=== PATIENT | female | born 1995 | race Caucasian/White ===

== ENCOUNTER → 2025-03-18 | Outpatient (CLI) | payer OTHER, SELFPAY ==
[2025-03-20 20:08] LABS: Chlamydia By Nucleic Acid AMP Negative (Negative); Gonococcus By Nucleic Acid AMP Negative (Negative)
== END | disposition home or self-care (01) ==
LOC: LABSPEC 12:18
PROVIDERS: PCP Family Medicine; Referring Provider Nurse Practitioner Family; Visit Provider Nurse Practitioner Family
DX: Z11.3 Encounter for screening for infections with a predominantly sexual mode of transmission (principal)
CPT/HCPCS: 87491; 87591

== ENCOUNTER → 2025-03-24 | Outpatient (CLI) | payer OTHER, SELFPAY ==
[2025-03-24 16:36] LABS: Hematocrit 40.4 % (37-47); Hemoglobin 12.8 g/dL (12.0-15.0); Immature Granulocytes Count 0.020 X10^3/uL (0.0-0.0); Mean Corp Hgb Conc 31.7 g/dL (32-36); Mean Corpuscular Volume 78.8 fL (81-99); Mean Platelet Vol. 11.1 fl (6.2-12.0); NRBC Flagged by Analyzer 0 % (0-5); Platelet Count 280 K/mm3 (150-450); RBC Distribution Width CV 14.1 % (11.6-14.6); RBC Distribution Width SD 40.5 fl (35.1-43.9); Red Blood Count 5.13 M/mm3 (4.2-5.4); White Blood Count 6.6 K/mm3 (4.4-11.0)
[2025-03-24 17:25] LABS: AST(SGOT) 17 U/L (<=31); Alanine Aminotransfer ALT/SGPT 15 U/L (<=34); Albumin, Serum 4.6 g/dL (3.5-5.0); Alkaline Phosphatase 74 U/L (35-104); Anion Gap 12 (5-15); BUN 15 mg/dL (4-19); BUN/Creat Ratio 19.7 RATIO (10-20); Calcium,Total 9.8 mg/dL (7.6-11.0); Carbon Dioxide 24.7 mmol/L (21.0-32.0); Chloride 105 mmol/L (98-108); Globulin 2.8 g/dL (2.2-4.2); Glucose 86 mg/dL (70-99); Potassium 3.8 mmol/L (3.3-5.1)
== END | disposition home or self-care (01) ==
PROVIDERS: PCP Family Medicine; Visit Provider Nurse Practitioner Family
DX: Z31.69 Encounter for other general counseling and advice on procreation (principal); N93.0 Postcoital and contact bleeding
CPT/HCPCS: 36415; 80053; 82627; 82670; 84439; 84443; 85025; 82626

== ENCOUNTER → 2025-03-27 | Outpatient (CLI) | payer OTHER, SELFPAY ==
--- NOTE | 2025-03-27 16:30 | US_ITS ---
PROCEDURE: PELVIC W/ TRANSVAGINAL 03/27/2025 REASON FOR EXAM: PCB/INFERTILITY TECHNIQUE: Procedure Code: [id number] Modality: US Procedure: PELVIC W/ TRANSVAGINAL COMPARISON: None. FINDINGS: ENDOMETRIUM: Homogeneous. Normal thickness of 3.0 mm. No abnormal endometrial color Doppler flow. UTERUS: Normal size and contour measuring 7.2 x 4.7 x 3.3 cm. No fibroid detected. CERVIX: Normal size and contour. Small anechoic cervical nabothian cysts. RIGHT OVARY: Normal size and appearance measuring 2.8 x 1.6 x 3.2 cm (volume 7.5 mL). Normal follicles. Normal blood flow. No adnexal mass. LEFT OVARY: Normal size and appearance measuring 2.3 x 2.2 x 2.0 cm (volume 5.3 mL). Normal follicles. Normal blood flow. No adnexal mass. FREE FLUID: No free fluid. URINARY BLADDER: Normal morphology with a volume of 268.2 mL. US/Pelvic w/ Transvaginal IMPRESSION: UNREMARKABLE PELVIC ULTRASOUND. Reading Location: [id number]
--- OUTSIDE RECORDS SUMMARY | 2025-03-27 16:49 | XMS RPT_ITS | CCD ---
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 AMAURY IBARRA Attending Unavailable STACEY, Dr. REBOLLEDO Referring Unavailable Aure Gordon Primary Care Unavaila ble Gordon, Aure Dodd Primary Care Unavaila ble STACEY, Dr. REBOLLEDO Attending Unavailable Gordon, Aure Dodd Referring Unavaila ble Gordon, Aure Dodd Primary Care Unavaila ble GordonAure castro Attending Unavaila ble GordonAure castro Primary Care Unavaila ble GordonAure castro Attending Unavaila ble GordonAure Referring Unavaila ble Gordon, Aure Dodd Primary Care Unavaila ble Wood, Ms. Kristine Yates Attending Unav ailable Wood, Ms. Kristine Yates Referring Unav ailable GordonAure castro Primary Care Unavaila ble GordonAure castro Attending Unavaila ble GordonAure castro Referring Unavaila ble Gordon Aure BLAKE Primary Care Provider IRMA STAFFORD Attending Ingevai lable AURE GORDON Primary Care Unavaila ble Medications Current Medications Medication Drug Class(es) Dates Sig (Normalized) Sig (Original) brompheniramine maleate 0.4 mg/ml / dextromethorphan hydrobromide 2 mg/ml / pseudoephedrine hydrochloride 6 mg/ml oral solution (2 sources) alpha-Adrenergic Agonist, Uncompetitive B-lxmftf-X-aspartat e Receptor Antagonist, Sigma-1 Agonist Start: 03-17-2019 take 5 mL by mouth four times daily for cough Bromfed DM oral syrup ; 5 milliliter(s) orally 4 times a day, As Needed -for cough Quantity: 120 Refills: 0 Ordered: 17-Mar-2019 Daniel Cha Start: 17-Mar-2019 Generic Substitution Allowed Comments: May cause drowsiness. Alcohol may intensify this effect. Use care when operating dangerous machinery.Obtain medical advice before taking any non-prescription drugs as some may affect the action of this medication. Comment on above: May cause drowsiness . Alcohol may intensify this effect. Use care when operating dangerous machinery.Obtain medical advice before taking any non-prescription drugs as some may affect the action of this medication. Ethinyl Estradiol / norgestimate (2 sources) Progestin, Estrogen Ortho Tri-Cy clen Quantity: 0 Refills: 0 Ordered: 17-Mar-2019 Priscila Moya Generic Substitution Allowed Completed/Discontinued Medications Medication Drug Class(es) Dates Sig (Normalized) Sig (Original) amoxicillin 875 mg / clavulanate 125 mg oral tablet (2 sources) Penicillin-class Antibacterial Start: 03-17-2019 End: 03-26-2019 take 1 tablet by mouth twice daily at mealtime amoxicillin-clavula mushtaq 875 mg-125 mg oral tablet ; 875 milligram(s) orally 2 times a day Quantity: 20 Refills: 0 Ordered: 17-Mar-2019 Daniel Cha Start: 17-Mar-2019 End: 26-Mar-2019 Generic Substitution Allowed Comments: Finish all this medication unless otherwise directed by prescriber.Take with food or milk. Comment on above: Finish all this medi cation unless otherwise directed by prescriber.Take with food or milk. doxylamine succinate 25 mg oral tablet (2 sources) Start: 01-20-2022 take 1 tablet by mouth at bedtime Unisom SleepTabs 25 MG Oral Tablet TAKE 1 TABLET AT BEDTIME. Quantity: 30 Refills: 3 Ordered: 20-Jan-2022 Kristine Acosta Start : 20-Jan-2022 Active escitalopram 10 mg oral tablet (1 source) Serotonin Reuptake Inhibitor Start: 12-29-2021 take 1 tablet by mouth once daily Escitalopram Oxalate 10 MG Oral Tablet TAKE 1 TABLET DAILY. Quantity: 30 Refills: 11 Ordered: 29-Dec-2021 Aure Gordon MD Start : 29-Dec-2021 Active 1-20 MG-MCG(24) Oral Tablet (1 source) Estrogen Start: 04-25-2018 take 1 tablet by mouth once daily 1-20 MG-MCG(24) Oral Tablet TAKE 1 TABLET DAILY. Quantity: 1 Refills: 0 Amaury Ibarra DO Start : 25-Apr-2018 Active 28 Tablet Pack No Reported Medications (3 sources) No Reported Medications Quantity: 0 Refills: 0 Ordered: 07-Jun-2020 DO Active ondansetron 8 mg disintegrating oral tablet (3 sources) Serotonin-3 Receptor Antagonist Start: 01-03-2022 take 1 tablet by mouth every six hours as needed for nausea Ondansetron 8 MG Oral Tablet Disintegrating 1 every 6 hours as needed for nausea Quantity: 12 Refills: 2 Ordered: 03-Jan-2022 Aure Gordon MD Start : 03-Jan-2022 Active predniSONE 10 mg oral tablet (2 sources) Start: 03-17-2019 End: 03-19-2019 take 1 tablet by mouth twice daily at mealtime predniSONE 10 mg oral tablet ; 1 tab(s) orally 2 times a day Quantity: 6 Refills: 0 Ordered: 17-Mar-2019 Daniel Cha Start: 17-Mar-2019 End: 19-Mar-2019 Generic Substitution Allowed Comments: It is very important that you take or use this exactly as directed. Do not skip doses or discontinue unless directed by your doctor.Obtain medical advice before taking any non-prescription drugs as some may affect the action of this medication.Take with food or milk. Comment on above: It is very important that you take or use this exactly as directed. Do not skip doses or discontinue unless directed by your doctor.Obtain medical advice before taking any non-prescription drugs as some may affect the action of this medication.Take with food or milk. sertraline 50 mg oral tablet (2 sources) Serotonin Reuptake Inhibitor Start: 01-03-2022 End: 01-20-2022 take 0.5 tablet by mouth once daily, then take 1 tablet by mouth once daily Sertraline HCl - 50 MG Oral Tablet 1/2 a day for a week, then 1 a day Quantity: 30 Refills: 11 Ordered: 03-Jan-2022 Aure Gordon MD Start : 03-Jan-2022 End : 20-Jan-2022 Complete Problems Active Problems Problem Classification Problem Date Documented Date Episodic/Chronic Anxiety disorders (4 sources) Mixed anxiety and depressive disorder; Translations: [Anxiety state, unspecified] Chronic Contraceptive and procreative management (20 sources) Patient encounter status; Translations: [Unspecified contraceptive management] Episodic Immunizations and screening for infectious disease (2 sources) Contact with or exposure to other viral diseases; Translations: [Contact with and (suspected) exposure to other viral communicable diseases] 12-29-2020 Episodic Nausea and vomiting (3 sources) Nausea; Translations: [Nausea alone] Episodic Open wounds of extremities (1 source) Avulsion of skin; Translations: [Open wound of finger(s), without mention of complication] 11-03-2021 Episodic Other female genital disorders (2 sources) Abnormal uterine bleeding; Translations: [Abnormal uterine and vaginal bleeding, unspecified] 07-13-2024 Chronic Other female genital disorders (2 sources) Abnormal uterine and vaginal bleeding, unspecified; Translations: [Abnormal uterine and vaginal bleeding, unspecified] Onset: 07-11-2024 Chronic Other female genital disorders (1 source) Disorder of uterine cervix; Translations: [Other specified noninflammatory disorders of cervix uteri] 07-13-2024 Episodic Other screening for suspected conditions (not mental disorders or infectious disease) (9 sources) Cancer cervix screening status; Translations: [Screening for malignant neoplasms of cervix] Onset: 06-13-2021 Episodic Residual codes; unclassified (2 sources) Insomnia; Translations: [Insomnia, unspecified] Episodic Screening and history of mental health and substance abuse codes (7 sources) H/O: depression; Translations: [Personal history of other mental disorders] Episodic Unclassified (1 source) Patient encounter procedure 06-07-2020 Comment on above: YEARLY Unclassified (2 sources) THUMB LACERATION 11-03-2021 Comment on above: THUMB LACERATION Unclassified (1 source) Avulsion of skin of right thumb, initial encounter 11-03-2021 Viral infection (2 sources) Disease caused by 2019-nCoV 12-29-2020 Comment on above: COVID SX Past or Other Problems Problem Classification Problem Date Documented Da te Episodic/Chronic Unclassified (1 source) Patient encounter status; Translations: [Contraceptive management] Results Test Name Value Interpretation Reference Range Facility BV/VAGINITIS PANEL DNA PROBE on 07-12-2024 LORY: Not detected Normal NOT DETECTED [facility] Comment on above: Performed By: #### [id number] #### [facility] of [address], [address] [place] [address] Chemistry Lab Instructor: Andrea Armando MD GARDNERELLA: Not detected Normal NOT DETECTED [facility] Comment on above: Performed By: #### [id number] #### [facility] [address], [address] [place] [address] Chemistry Lab Instructor: Andrea Armando MD TRICHOMONAS: Not detected Normal NOT DETECTED [facility] Comment on above: Performed By: #### [id number] #### [facility] [address], [address] [place] [address] Chemistry Lab Instructor: Andrea Armando MD Vaginitis DNA Probeson 07-12 Lory sp rRNA Probe Ql (Vag fld) Not detected NOT DETECTED [facility] G. vaginalis rRNA Probe Ql (Genital specimen) Not detected NOT DETECTED [facility] T. vaginalis rRNA Probe Ql (Genital specimen) Not detected NOT DETECTED [facility] THINPREP PAP SMEARon 025 THINPREP PAP SMEAR Gynecologic Cytology Report Case: [id number] Authorizing Provider: Irma Stafford, Collected: 07/11/2024 11:10 AM Ordering Location: [facility] Received: 07/14/2024 08:27 AM Obstetrics and Gynecology First Screen: Rhiannon ELI(ASCP)Aurelio Specimen: THINPREP PAP SMEAR, Cervix / Endocervix Satisfactory for evaluation; endocervical/transformatio n zone component present Negative for intraepithelial lesion or malignancy at 1033 EDT The Pap smear is a screening test for the detection of cervical cancer and its precursor lesions. False positive and false negative results can occur. The test should be performed at regular intervals, and positive results should be confirmed before definitive therapy. Additional testing methods may be helpful in detecting abnormalities or in clinical management. The specimen has been analyzed by the ThinPrep imaging system, an automated imaging and review system which assists the laboratory in evaluating cells on ThinPrep tests. Following automated imaging selected ward from every slide are reviewed by a stucco mason. Specimen processing and Primary Screening performed at: [facility] - [address] [place] [id number] 06/21/2024 Normal [facility] Comment on above: Performed By: #### [id number] #### [facility] [address] [place] [id number] Salvador Mtz M.D. [id number] VAGINITIS DNA PROBESon 07-11 VAGINITIS DNA PROBES EXT ONEL - TRICHOMONAS: NOT DETECTED EXT ONEL - GARDNERELLA: NOT DETECTED EXT ONEL - LORY: NOT DETECTED Normal NOT DETECTED [facility] Comment on above: Order Comment: [id number] Office Visit (Primary Care T xt/Forms)on 01-30-2022 Follow-up visit Diagnoses/Problems Assessed Anxiety and depression (300.00,311) (F41.9,F32.A) Patient Discussion/Summary Follow-up as needed Provider Impressions Provider Impressions Free Text Note Form: Patient is here today for recheck on anxiety, had trouble tolerating Lexapro and Zoloft, it made her anxiety worse, since then has changed jobs at work, is getting ready to see a counselor and is not drinking alcohol anymore. Patient is feeling better, emotionally seems to be stable, plan to follow-up as needed. Chief Complaint 1 MO F/U History of Present Illness SSRI made feel more anxious and nervous, nauseated, feeling better off of medicines emotionally doing OK now nausea and insomnia better changed jobs in the past month no ETOH use going to try counseling Review of Systems Constitutional: not feeling tired, no fever and no chills. ENT: no nasal discharge and no nasal congestion. Respiratory: cough, but no dyspnea with exertion and no dyspnea at rest. Gastrointestinal: no diarrhea, no nausea and no vomiting. Psychiatric: no mood changes, no sleep disturbances, no substance use, no feelings of anxiety, no panic attacks, no feelings of depression and no suicidal thoughts. Active Problems Problems Anxiety and depression (300.00,311) (F41.9,F32.A) Contraceptive management (V25.9) (Z30.9) Insomnia (780.52) (G47.00) Nausea in adult (787.02) (R11.0) Screening for breast cancer (V76.10) (Z12.39) Screening for cervical cancer (V76.2) (Z12.4) Screening for diabetes mellitus (V77.1) (Z13.1) Screening for lipid disorders (V77.91) (Z13.220) Wellness examination (V70.0) (Z00.00) Women's annual routine gynecological examination (V72.31) (Z01.419) Past Medical History Problems History of depression (V11.8) (Z86.59) History of Menarche (V21.8) History of Pap test, as part of routine gynecological examination (V76.2) (Z01.419) Surgical History Problems History of [place] tooth extraction Family History Mother Family history of diabetes mellitus (V18.0) (Z83.3) Family history of migraine headaches (V17.2) (Z82.0) Family history of HTN (hypertension), benign Father Family history of hypertension (V17.49) (Z82.49) Family history of Psychological disorder Social History Problems Consumes alcohol occasionally (V49.89) (Z78.9) Does not use illicit drugs (V49.89) (Z78.9) Non-smoker (V49.89) (Z78.9) Sexually active Current Meds Medication NameInstruction Ondansetron 8 MG Oral Tablet Disintegrating1 every 6 hours as needed for nausea Unisom SleepTabs 25 MG Oral TabletTAKE 1 TABLET AT BEDTIME. Allergies Medication No Known Drug Allergies Vitals Vital Signs Recorded: 30Jan2022 03:51PM Heart Rate: 88 Systolic: 110 Diastolic: 70 Height: 5 ft 8 in Weight: 172 lb 2 oz BMI Calculated: 26.17 kg/m2 BSA Calculated: 1.92 O2 Saturation: 99 Physical Exam Constitutional - Well developed, well nourished, well hydrated and no acute distress. Vital signs reviewed. Pulmonary - No grunting, flaring or retractions. No rales or wheezing. Good air exchange. Cardiovascular - Regular rate and rhythm. No significant murmur. Abdomen - Soft, non-tender, no masses. No hepatomegaly or splenomegaly. normal active bowel sounds. Psychiatric - Judgment and insight: Intact. Mood and affect: Normal. Alert and oriented x 3. Recent and remote memory: Normal. Signatures Electronically signed by : Aure Gordon MD; Jan 30 2022 4:09PM EST (Author) Normal [facility] Office Visit (Primary Care T xt/Forms)on 01-20-2022 Follow-up visit Diagnoses/Problems Assessed Anxiety and depression (300.00,311) (F41.9,F32.A) Nausea in adult (787.02) (R11.0) Insomnia (780.52) (G47.00) Orders Insomnia Start: Unisom SleepTabs 25 MG Oral Tablet; TAKE 1 TABLET AT BEDTIME Provider Impressions Provider Impressions Free Text Note Form: Work excuse for today Discontinue Zoloft Continue Zofran 8 mg every 6 hours as needed for nausea Unisom 25 mg 30 minutes prior to sleep as needed Contact information given for [facility] [place] Keep appointment with Dr. Gordon next month Chief Complaint STARTED NEW MED , DRY HEAVING, NAUSEA, INSOMNIA, INCREASED ANXIETY History of Present Illness Monica comes to office for concerns of anxiety AND depression. Trialed Lexapro for 4-5D AND developed nausea (recently chged jobs) with worsened worsened her anxiety AND caused intrusive thoughts AND poor appetite. Zofran helped w/ nausea AND helped increase her appetite. Symptoms abated after discontinuing Lexapro over the course of a couple days. She allowed to washout of the Lexapro and once she was symptom-free she started Zoloft. After taking Zoloft for 4D she developed anxiety, became more edgy, had trouble relaxing, nausea returned and the re-development of intrusive thoughts. Awoke this AM w/ dry heaves, poor appetite. [place] feverish yest. When cked temp. 98.9. LMP: 01/13/22. In home preg test today: normal. Sleep: fair. Awakens w/ anxiety AND racing heart. Review of Systems Constitutional: feeling tired, but no fever and no chills. ENT: sore throat. Gastrointestinal: nausea and vomiting, but no abdominal pain, no constipation, no diarrhea and no heartburn. Psychiatric: mood changes, sleep disturbances, feelings of anxiety and feelings of depression, but no suicidal thoughts. Endocrine: appetite change. Active Problems Problems Anxiety and depression (300.00,311) (F41.9,F32.A) Contraceptive management (V25.9) (Z30.9) Nausea in adult (787.02) (R11.0) Screening for breast cancer (V76.10) (Z12.39) Screening for cervical cancer (V76.2) (Z12.4) Screening for diabetes mellitus (V77.1) (Z13.1) Screening for lipid disorders (V77.91) (Z13.220) Wellness examination (V70.0) (Z00.00) Women's annual routine gynecological examination (V72.31) (Z01.419) Past Medical History Problems History of depression (V11.8) (Z86.59) History of Menarche (V21.8) History of Pap test, as part of routine gynecological examination (V76.2) (Z01.419) Surgical History Problems History of [place] tooth extraction Family History Mother Family history of diabetes mellitus (V18.0) (Z83.3) Family history of migraine headaches (V17.2) (Z82.0) Family history of HTN (hypertension), benign Father Family history of hypertension (V17.49) (Z82.49) Family history of Psychological disorder Social History Problems Consumes alcohol occasionally (V49.89) (Z78.9) Does not use illicit drugs (V49.89) (Z78.9) Non-smoker (V49.89) (Z78.9) Sexually active Current Meds Medication NameInstruction Ondansetron 8 MG Oral Tablet Disintegrating1 every 6 hours as needed for nausea Allergies Medication No Known Drug Allergies Vitals Vital Signs Recorded: [id number] 01:27PM Heart Rate: 91 Systolic: 122 Diastolic: 82 Height: 5 ft 8 in Weight: 177 lb 9 oz BMI Calculated: 27 kg/m2 BSA Calculated: 1.94 Tobacco Use: b) No Falls Screening (Age 18+): a) No falls within the last year O2 Saturation: 98 Physical Exam Constitutional - Well developed, well nourished, well hydrated and no acute distress. Vital signs reviewed. Ears, Nose, Mouth, and Throat - No nasal discharge. External ears without deformities. TM's normal color, normal landmarks, no fluid, non-retracted. External auditory canals without swelling, redness or tenderness. Pharyngeal mucosa normal. No erythema, exudate, or lesions. Mucous membranes moist. Pulmonary - No grunting, flaring or retractions. No rales or wheezing. Good air exchange. Cardiovascular - Regular rate and rhythm. No significant murmur. Signatures Electronically signed by : CECILY Treviño; Jan 20 2022 1:57PM EST (Author) Normal [facility] Tobacco Screening.on 022 Fall risk assessment a) No falls within the last year [facility] Work Phone: Tobacco use status [facility] b) No [employer] Work Phone: Office Visit (Primary Care T xt/Forms)on 12-29-2021 Follow-up visit Diagnoses/Problems Assessed Anxiety and depression (300.00,311) (F41.9,F32.A) Orders Anxiety and depression Start: Escitalopram Oxalate 10 MG Oral Tablet; TAKE 1 TABLET DAILY Patient Discussion/Summary Follow-up in 1 month for anxiety Provider Impressions Provider Impressions Free Text Note Form: Patient is seen today for evaluation of emotional disorder. Patient is having trouble with anxiety since start of COVID-19 in 2019, and has been having increasing emotional lability feeling blue blood sad hopeless helpless fatigue, had been using at least 3-4 alcoholic beverages a day to try to cope with feelings, having hard time sleeping at night, started a new job in the past month, is feeling more anxious and depressed, has had some suicidal ideations without any plans or thoughts of carrying this out. Had been treated for depression in the past when she was in high school no history of hospitalization no family history of suicide or alcoholism. We will try adding Lexapro 10 mg once a day to the patient's regimen, she had been on citalopram in the past, advised about medication taken about 4 to 6 weeks to help, follow-up in 4 weeks to reassess, call the office if any symptoms or issues. Chief Complaint DEP /ANX History of Present Illness Not feeling well for the past 2 years, getting worse, started a new job (making worse) feeling stressed and anxious, hard to sleep well at night, no panic, tearful at times, + irritable/edgy, some trouble with focus, + hopeless and helpless, some fatigue, no motivation to do things has been treated for emotions in the past (in high school) has had some SI, no plans thought about self mutilation + ETOH (3 drinks a day/seltzer or wine), has tried to stop this summer, has cut back to 1 a week no FHx of ETOH abuse never been hospitalized in the past for mood Review of Systems Constitutional: feeling tired, but no fever and no chills. Psychiatric: mood changes, sleep disturbances, substance use, feelings of anxiety, feelings of depression and suicidal thoughts, but no panic attacks. Active Problems Problems Contraceptive management (V25.9) (Z30.9) Screening for breast cancer (V76.10) (Z12.39) Screening for cervical cancer (V76.2) (Z12.4) Screening for diabetes mellitus (V77.1) (Z13.1) Screening for lipid disorders (V77.91) (Z13.220) Wellness examination (V70.0) (Z00.00) Women's annual routine gynecological examination (V72.31) (Z01.419) Past Medical History Problems History of depression (V11.8) (Z86.59) History of Menarche (V21.8) History of Pap test, as part of routine gynecological examination (V76.2) (Z01.419) Surgical History Problems History of [place] tooth extraction Family History Mother Family history of diabetes mellitus (V18.0) (Z83.3) Family history of migraine headaches (V17.2) (Z82.0) Family history of HTN (hypertension), benign Father Family history of hypertension (V17.49) (Z82.49) Family history of Psychological disorder Social History Problems Consumes alcohol occasionally (V49.89) (Z78.9) Does not use illicit drugs (V49.89) (Z78.9) Non-smoker (V49.89) (Z78.9) Sexually active Current Meds Medication NameInstruction No Reported Medications Allergies Medication No Known Drug Allergies Vitals Vital Signs Recorded: [id number] 04:23PM Heart Rate: 97 Systolic: 110 Diastolic: 80 Height: 5 ft 8 in Weight: 177 lb 9 oz BMI Calculated: 27 kg/m2 BSA Calculated: 1.94 O2 Saturation: 99 Physical Exam Constitutional - Well developed, well nourished, well hydrated and no acute distress. Vital signs reviewed. Psychiatric - Judgment and insight: Intact. Mood and affect: Normal. Alert and oriented x 3. Recent and remote memory: Normal. Signatures Electronically signed by : Aure Gordon MD; Dec 29 2021 5:13PM EST (Author) Normal [facility] COMPREHENSIVE PANELon 2021 Albumin [Mass/Vol] 4.4 g/dL Normal 3.4 - 5.0 [facility] Comment on above: Performed By: #### CMP #### [address] [address] ALP [Catalytic activity/Vol] 59 U/L Normal 33 - 110 [facility] Comment on above: Performed By: #### CMP #### [address] [address] ALT [Catalytic activity/Vol] 10 U/L Normal 7 - 45 [facility] Comment on above: Result Comment: Patients treated with Mulligan lfasalazine may generate falsely decreased results for ALT. Performed By: #### C MP #### [address] [address] Anion gap [Moles/Vol] 11 mmol/L Normal 10 - 20 [facility] Comment on above: Performed By: #### CMP #### [address] [address] AST [Catalytic activity/Vol] 15 U/L Normal 9 - 39 [facility] Comment on above: Performed By: #### CMP #### [address] [address] Bilirubin [Mass/Vol] 0.4 mg/dL Normal 0.0 - 1.2 [facility] Comment on above: Performed By: #### CMP #### [address] [address] Calcium [Mass/Vol] 9.4 mg/dL Normal 8.6 - 10.3 [facility] Comment on above: Performed By: #### CMP #### [address] [address] Chloride [Moles/Vol] 108 mmol/L High 98 - 107 [facility] Comment on above: Performed By: #### CMP #### [address] [address] Creatinine [Mass/Vol] 0.82 mg/dL Normal 0.50 - 1.05 [facility] Comment on above: Performed By: #### CMP #### [address] [address] eGFR FEMALE >90 Normal >90 [facility] Comment on above: Result Comment: CALCULATIONS OF ESTIMATE D GFR ARE PERFORMED USING THE 2020 CKD-EPI STUDY REFIT EQUATION WITHOUT THE RACE VARIABLE FOR THE IDMS-TRACEABLE CREATININE METHODS. https://jasn.asnjournals.org/content//ASN.5584059395 Performed By: #### C MP #### [address] [address] Glucose [Mass/Vol] 88 mg/dL Normal 74 - 99 [facility] Comment on above: Performed By: #### CMP #### [address] [address] HCO3 (Bld) [Moles/Vol] 26 mmol/L Normal 21 - 32 [facility] Comment on above: Performed By: #### CMP #### [address] [address] Potassium [Moles/Vol] 4.5 mmol/L Normal 3.5 - 5.3 [facility] Comment on above: Performed By: #### CMP #### [address] [address] Protein [Mass/Vol] 7.1 g/dL Normal 6.4 - 8.2 [facility] Comment on above: Performed By: #### CMP #### [address] [address] Sodium [Moles/Vol] 140 mmol/L Normal 136 - 145 [facility] Comment on above: Performed By: #### CMP #### [address] [address] Urea nitrogen [Mass/Vol] 15 mg/dL Normal 6 - 23 [facility] Comment on above: Performed By: #### CMP #### [address] [address] LIPID PANEL (CORONARY RISK 2 )on 12-14-2021 Cholesterol [Mass/Vol] 180 mg/dL Normal 0 - 199 [facility] Comment on above: Result Comment: . AGE DESIRABLE BORDERLINE HIGH HIGH 0-19 Y 0 - 169 170 - 199 >/= 200 20-24 Y 0 - 189 190 - 224 >/= 225 >24 Y 0 - 199 200 - 239 >/= 240 All ranges are based on fasting samples. Specific therapeutic targets will vary based on patient-specific cardiac risk. . Pediatric guidelines reference:Pediatrics 2011, 128(S5). Adult guidelines reference: NCEP ATPIII Guidelines, TRAN 2001, 258:2486-97 . Venipuncture immediately after or during the administration of Metamizole may lead to falsely low results. Testing should be performed immediately prior to Metamizole dosing. Performed By: #### L IPID #### [address] [address] Cholesterol in HDL [Mass/Vol] 60.0 mg/dL Normal [facility] Comment on above: Result Comment: . AGE VERY LOW LOW NORMAL HIGH 0-19 Y < 35 < 40 40-45 ---- 20-24 Y ---- < 40 >45 ---- >24 Y ---- < 40 40-60 >60 . Performed By: #### L IPID #### [address] [address] Cholesterol in LDL [Mass/Vol] 104 mg/dL High 0 - 99 [facility] Comment on above: Result Comment: . NEAR BORD AGE DESIRABLE OPTIMAL HIGH HIGH VERY HIGH 0-19 Y 0 - 109 --- 110-129 >/= 130 ---- 20-24 Y 0 - 119 --- 120-159 >/= 160 ---- >24 Y 0 - 99 100-129 130-159 160-189 >/=190 . Performed By: #### L IPID #### [address] [address] Cholesterol in VLDL [Mass/Vol] 16 mg/dL Normal 0 - 40 [facility] Comment on above: Performed By: #### LIPID #### [address] [address] Cholesterol.tota l/Cholesterol in HDL [Mass ratio] 3.0 {ratio} Normal [facility] Comment on above: Result Comment: REF VALUES DESIRABLE < 3.4 HIGH RISK > 5.0 Performed By: #### L IPID #### [address] [address] Triglyceride [Mass/Vol] 78 mg/dL Normal 0 - 149 [facility] Comment on above: Result Comment: . AGE DESIRABLE BORDERLINE HIGH HIGH VERY HIGH 0 D-90 D 19 - 174 ---- ---- ---- 91 D- 9 Y 0 - 74 75 - 99 >/= 100 ---- 10-19 Y 0 - 89 90 - 129 >/= 130 ---- 20-24 Y 0 - 114 115 - 149 >/= 150 ---- >24 Y 0 - 149 150 - 199 200- 499 >/= 500 . Venipuncture immediately after or during the administration of Metamizole may lead to falsely low results. Testing should be performed immediately prior to Metamizole dosing. Performed By: #### L IPID #### [address] [address] Laboratory - Chemistry and C hemistry - challengeon 12-14-2021 Albumin BCP dye [Mass/Vol] 4.4 g/dL 3.4 - 5.0 [facility] [facility] Work Phone: ALP [Catalytic activity/Vol] 59 U/L 33 - 110 [employer] [facility] Work Phone: ALT With P-5'-P [Catalytic activity/Vol] 10 U/L 7 - 45 [facility]: Comment on above: Patients treated with Sulfasalazine may generate falsely decreased results for ALT. Anion gap [Moles/Vol] 11 mmol/L 10 - 20 [facility] Work Phone: AST With P-5'-P [Catalytic activity/Vol] 15 U/L 9 - 39 [facility] Work Phone: Bilirubin [Mass/Vol] 0.4 mg/dL 0.0 - 1.2 [facility] Work Phone: Calcium [Mass/Vol] 9.4 mg/dL 8.6 - 10.3 [facility] Work Phone: Chloride [Moles/Vol] 108 mmol/L above high threshold 98 - 107 [facility] Work Phone: CO2 [Moles/Vol] 26 mmol/L 21 - 32 [facility] Work Phone: Creatinine [Mass/Vol] 0.82 mg/dL See Below [facility] Work Phone: Comment on above: Reference Range: 0.50 - 1.05 Glucose [Mass/Vol] 88 mg/dL 74 - 99 [facility] Work Phone: Potassium [Moles/Vol] 4.5 mmol/L 3.5 - 5.3 [facility] Work Phone: Protein [Mass/Vol] 7.1 g/dL 6.4 - 8.2 [facility] Work Phone: Sodium [Moles/Vol] 140 mmol/L 136 - 145 [facility] Work Phone: Urea nitrogen [Mass/Vol] 15 mg/dL 6 - 23 [facility] Work Phone: Lipid Panelon 12-14-2021 Cholesterol [Mass/Vol] 180 mg/dL 0 - 199 [facility] Work Phone: Comment on above: . AGE DESIRABLE BORDERLINE HIGH HIGH 0-1 9 Y 0 - 169 170 - 199 >/= 200 20-24 Y 0 - 189 190 - 224 >/= 225 >24 Y 0 - 199 200 - 239 >/= 240 All ranges are based on fasting samples. Specific therapeutic targets will vary based on patient-specific cardiac risk.. Pediatric guidelines reference:Pediatrics 2011, 128(S5). Adult guidelines reference: NCEP ATPIII Guidelines, TRAN 2001, 258:2486-97. Venipuncture immediately after or during the administration of Metamizole may lead to falsely low results. Testing should be performed immediately prior to Metamizole dosing. Cholesterol in HDL [Mass/Vol] 60.0 mg/dL [employer] [facility] Work Phone: Comment on above: . AGE VERY LOW LOW NORMAL HIGH 0-19 Y < 35 < 40 40-45 ---- 20-24 Y ---- < 40 >45 ---- >24 Y ---- < 40 40-60 >60. Cholesterol in LDL [Mass/Vol] 104 mg/dL above high threshold 0 - 99 [employer] [facility] Work Phone: Comment on above: . NEAR BORD AGE DESIRABLE OPTIMAL HIGH H IGH VERY HIGH 0-19 Y 0 - 109 --- 110-129 >/= 130 ---- 20-24 Y 0 - 119 --- 120-159 >/= 160 ---- >24 Y 0 - 99 100-129 130-159 160-189 >/=190. Cholesterol.tota l/Cholesterol in HDL [Mass ratio] 3.0 {ratio} [employer] [facility] Work Phone: Comment on above: REF VALUESDESIRABLE < 3.4HIGH RISK > 5.0 Triglyceride [Mass/Vol] 78 mg/dL 0 - 149 [employer] [facility] Work Phone: Comment on above: . AGE DESIRABLE BORDERLINE HIGH HIGH JAY Y HIGH 0 D-90 D 19 - 174 ---- ---- ----91 D- 9 Y 0 - 74 75 - 99 >/= 100 ---- 10-19 Y 0 - 89 90 - 129 >/= 130 ---- 20-24 Y 0 - 114 115 - 149 >/= 150 ---- >24 Y 0 - 149 150 - 199 200- 499 >/= 500. Venipuncture immediately after or during the administration of Metamizole may lead to falsely low results. Testing should be performed immediately prior to Metamizole dosing. Lipid Panel 16 mg/dL 0 - 40 [facility] Work Phone: No Panel Informationon 12-14 >90 >90 [facility] [facility] Work Phone: Comment on above: CALCULATIONS OF ESTIMATED GFR ARE PERFOR MED USING THE 2020 CKD-EPI STUDY REFIT EQUATION WITHOUT THE RACE VARIABLE FOR THE IDMS-TRACEABLE CREATININE METHODS.https://jasn.asnjournals.org/content///ASN.687 [id number] Office Visit (Primary Care T xt/Forms)on 12-14-2021 Follow-up visit Diagnoses/Problems Assessed Family history of HTN (hypertension), benign : Mother Family history of diabetes mellitus (V18.0) (Z83.3) : Mother Wellness examination (V70.0) (Z00.00) Screening for diabetes mellitus (V77.1) (Z13.1) Screening for lipid disorders (V77.91) (Z13.220) Orders Screening for diabetes mellitus Comprehensive Metabolic Panel; Status:Active; Requested for:[id number]; Screening for lipid disorders Lipid Panel; Status:Active; Requested for:[id number]; SocHx: Non-smoker Tobacco Use Screening; Status:Complete; Done: [id number] Patient Discussion/Summary Follow-up as needed, get blood testing done today Provider Impressions Provider Impressions Free Text Note Form: Patient arrives to the office today to establish as a new patient to our practice. 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 Check blood testing to check sugar and lipids, advised about healthy lifestyles, follow-up as needed. Chief Complaint POURER, CHECK UP History of Present Illness Pap in May with [place], not on OCP, does not like how feels on OCP has a spot on left shoulder, irritated at times No headache, chest pain, shortness of breath, dizziness, lightheadedness, or edema no GI issues no joint aches and pains Review of Systems Constitutional: NAD, no fevers, chills, sweats or fatigue Rep: no cough or shortness of breath Cardio: no chest pain, edema, or palpitations GI: no nausea, vomiting, diarrhea, constipation, or heartburn : normal urine flow and stream, no nocturia or dysuria MS: no joint pain or significant limits of function Skin: no visible rashes or suspicious lesions Neuro: alert and oriented X4, no numbness, tingling or issues with balance Psych: no anxiety or depression Active Problems Problems Contraceptive management (V25.9) (Z30.9) Screening for breast cancer (V76.10) (Z12.39) Screening for cervical cancer (V76.2) (Z12.4) Women's annual routine gynecological examination (V72.31) (Z01.419) Past Medical History Problems History of depression (V11.8) (Z86.59) History of Menarche (V21.8) History of Pap test, as part of routine gynecological examination (V76.2) (Z01.419) Surgical History Problems History of [place] tooth extraction Family History Mother Family history of diabetes mellitus (V18.0) (Z83.3) Family history of migraine headaches (V17.2) (Z82.0) Family history of HTN (hypertension), benign Father Family history of hypertension (V17.49) (Z82.49) Family history of Psychological disorder Social History Problems Consumes alcohol occasionally (V49.89) (Z78.9) Does not use illicit drugs (V49.89) (Z78.9) Non-smoker (V49.89) (Z78.9) Sexually active Current Meds Medication NameInstruction No Reported Medications Allergies Medication No Known Drug Allergies Vitals Vital Signs Recorded: [id number] 08:43AM Heart Rate: 91 Systolic: 100 Diastolic: 70 Height: 5 ft 8 in Weight: 183 lb 2 oz BMI Calculated: 27.84 kg/m2 BSA Calculated: 1.97 Tobacco Use: b) No PHQ-2 #1. Over the last 2 weeks have you felt down, depressed or hopeless? (If yes, answer PHQ-9 below): Yes PHQ-2 #2. Over the last 2 weeks have you felt little interest or pleasure in doing things? (If yes, answer PHQ-9 below): No Falls Screening (Age 18+): a) No falls within the last year O2 Saturation: 100 Physical Exam Gen: Alert and oriented, no acute distress HEENT: normal TMs/external ear, conjunctiva normal, PERRLA/EOMI, neck supple, no lymphadenopathy or thyromegaly Resp: clear to auscultation, no audible wheezes, rales, or rhonchi, normal chest movement Cardio: regular rate and rhythm, no murmur, clicks or gallops heard, normal peripheral pulses, no edema Abdomen: normal bowel sounds, soft, non tender, non distended, no organomegaly Skin: no visible rashes or abnormal skin lesions, warm and dry [place]eruo: Alert and oriented, normal gross movement of extremities Psych: cooperative and appropriate Signatures Electronically signed by : Aure Gordon MD; Dec 14 2021 9:03AM EST (Author) Normal [facility] Tobacco Screening.on Adult depression screening assessment Yes [employer] [facility] Work Phone: Adult depression screening assessment No [employer] [facility] Work Phone: Fall risk assessment a) No falls within the last year [employer] [facility] Work Phone: Tobacco use status CPHS b) No [employer] [facility] Work Phone: Provider Note - ED v3on 10-21 Provider Note - ED v3 Provider Note: Chart Review: ED NOTES ED NOTES: HPI: Patient was using a mandolin cutting some [place] sprouts when she created a small skin flap avulsion to the distal tip of right thumb. Unsure of tetanus status. Review of systems negative otherwise. ROS: Negative other than as noted in HPI ====Physical Exam==== Constitutional/General: Alert , well appearing, nontoxic, and in NAD. Head: Normocephalic and atraumatic. Eyes: PER, conjunctive normal, sclera nonicteric, subconjunctival layer is pink. Mouth: handling secretions, no trismus, moist mucous membranes Neck: Supple, full ROM, no stridor, no crepitus, no meningeal signs. Trachea at midline. Respiratory: not in respiratory distress. Chest: normal chest movement GI: nondistended Musculoskeletal: Moves all extremities, warm and well perfused Integument: Skin warm and dry, no rashes. Laceration as noted in HPI Neurologic: GCS 15, no focal deficits Psychiatric: Normal affect. I have reviewed and confirmed nurses/medics notes for patient past, social and family history. Portions of this note were dictated by speech recognition. An attempt at proof reading was made to minimize errors. Minor errors in bridge manager may be present. HISTORY OF PRESENTING ILLNESS MONICA is a 26 year old Female and was seen by me at 03-Nov-2021 20:08 for a chief complaint of lacerations (lac to right thumb, pt was using a mandolin, cut the tip of her thumb, light bleeding on arrival. pt unsure if tetanus up to date)(1). Triage Information: Most recent Vital Sign Value Date Temp (F): 98.8 11-03-2021 20:03 Temp (C): 37.1 11-03-2021 20:03 Heart Rate (beats/min): 88 11-03-2021 20:03 Respirations (breaths/min): 16 11-03-2021 20:03 SpO2 (%): 98 11-03-2021 20:03 BP Systolic (mm Hg): 159 11-03-2021 20:03 BP Diastolic (mm Hg): 95 11-03-2021 20:03 PAST MEDICAL HISTORY ALLERGIES/INTOLERANCES: No Known Allergies HEALTH HISTORY: No documented data. OUTPATIENT MEDICATIONS: Home Medications Review Status for Reconciliation: N/A Med Status: Incomplete Medication History Drug Name: Ortho Tri-Cyclen Instructions: null Drug Name: amoxicillin-clavulanate 875 mg-125 mg oral tablet Instructions: 875 milligram(s) orally 2 times a day Drug Name: Bromfed DM oral syrup Instructions: 5 milliliter(s) orally 4 times a day, As Needed -for cough Drug Name: predniSONE 10 mg oral tablet Instructions: 1 tab(s) orally 2 times a day SIGNIFICANT EVENTS: Immunizations Description:Tdap MDM MDM/ED COURSE: Patient's tetanus shot was updated wound was cleaned and dressed by nursing staff and discharged home as noted below. Patient comfortable with plan. As the flap of skin is very small and does not appear to be viable at this point I do not feel that stitching is necessary at this time. I do recommend that you leave the dressing in place for approximately 24 hours and then reevaluate the wound. If the flap of skin at that point appears I would go ahead and trim it off if however it does appear as though it is beginning to heal I would gently clean the area soap and water and reapply a dressing approximately every 24 hours. Please otherwise follow-up with your family doctor and return to the nearest ER otherwise for any new or worsening concerns. DISPOSITION Diagnosis/Annotation: ED Dx Name:Avulsion of skin of right thumb, initial encounter Code:S61.001A Disposition: discharged Type: home CONSULT CRITICAL CARE TIME Is this a critically ill patient: no Electronic Signatures: Will Sarabia I (CREATIVE SERVICES SPECIALIST-[facility]) (Signed 03-Nov-2021 22:12) Authored: ED Notes, HPI, PMH, PE, MDM/ED Course, Clinical Impression, Attestation, Chart Review, Scores Last Updated: 03-Nov-2021 22:12 by Will Sarabia I (CREATIVE SERVICES SPECIALIST-[employer]) References: 1. Data Referenced From Triage - ED 03-Nov-2021 20:03 Normal [facility] Risk Screen - Adult Emergenc yon 11-03-2021 Risk Screen - Adult Emergency Preferred Language: Preferred Language: Preferred Language for Discussing Health Care (patient/designee)[place] Advanced Directives: Advance Directive/DNRno Family Violence Adult: Abuse Screen: Are you or have you been threatened or abused physically, emotionally, or sexually by anyoneno Learning Assessment (Patient): Learning Assessment (Patient): Patient is Able to be Assessed for Learningyes Factors Influencing Readiness to Learnacuteness of illness Factors that Impact Ability to Learnnone Devices/Methods Used to Communicatenone Learning Preferencesaudio Cultural Considerationsnone Developmental Considerationsnone Yazdanism Considerationsnone Learning Assessment (Other Learner): Learning Assessment (Other Learner): Other learner availableno Pressure Injury/TB/Substance: Pressure Injury: Pressure Injury Present on Admissionno Do you have a coughno Smoking Statusnever smoker Alcohol Useoccasionally Drug Usedenies Drug 2 Usedenies Admission Risk Screen: Significant IndicatorsComplete CAGE: CAGE: Is this an injured patient at a Trauma Center ([facility]/[place]): no Electronic Signatures: Maricarmen Stanford (RN) (Signed 03-Nov-2021 20:07) Authored: Preferred Language, Advanced Directives, Family Violence Adult, Learning Assessment (Patient), Learning Assessment (Other Learner), Pressure Injury/TB/Substance, Pressure Injury, CAGE Last Updated: 03-Nov-2021 20:07 by Maricarmen Stanford (RN) [facility] Triage - EDon 11-03-2021 Triage - ED Quick Triage: Are You no Have You Given In The Last 6 Weeksno Are You Currently Breastfeedingno Chart Review: ARRIVAL INFORMATION Mode of Arrival: private vehicle CHIEF COMPLAINT MONICA SILVEIRA is a Female patient with a chief complaint of lacerations (lac to right thumb, pt was using a mandolin, cut the tip of her thumb, light bleeding on arrival. pt unsure if tetanus up to date). Triage Date/Time: 03-Nov-2021 20:03 JOE: 4 Vital Signs: Temperature: 98.8F ( 37.1C) taken temporal Blood Pressure: 159/95 Mean: Heart Rate: 88 Respiratory Rate: 16 Pulse Oximetry: 98% on room air, no respiratory support. Height: 5 feet 7.00 inches. 170.1 CM Weight: 174.1 pounds. Calculated 79.0 kg. (stated) Calculated BMI (kg/m2): 27.303 Calculated BSA (m2) 1.93 [place] Coma Scale: Best Motor Response: (M6) obeys commands Best Verbal Response: (V5) oriented Allergies: no Last menstrual period: 30-Oct-2021 Patient has homicidal thoughts: no Risk Screens Suicide Risk Screen In the Past Month: Have you wished you were or wished you could go to sleep and not wake up no In the Past Month: Have you had any actual thoughts of killing yourself no In Your Lifetime: Have you ever done anything, started to do anything, or prepared to do anything to end your life no Interventions: [place] Fall Interventions: LOW INTERVENTIONS: *patient oriented to surroundings and call system, * patient/family falls education completed and documented, *patients fall status communicated during bedside handoff, *whiteboard updated, *mode of toileting discussed with patient, *bed in low position with brakes locked, *call light in reach, * non-skid footwear TRAVEL HISTORY Travel History Coronavirus Screening: no exposure or symptoms Travel Exposure History: NO travel to International locations in the past 30 days PAIN Pain Scale Used: LYUBOV Past Medical History: Past Medical History Reviewedyes Electronic Signatures: Maricarmen StanfordRN) (Signed 03-Nov-2021 20:06) Entered: Risk Screens, Pain, Travel History, Chart Review, Scores, Past Medical History Authored: Quick Triage, Risk Screens, Pain, Travel History, Chart Review, Scores, Past Medical History Last Updated: 03-Nov-2021 20:06 by Maricarmen Stanford (HARJEET) [facility] LMPon 06-13-2021 Last menstrual period start date 16May2021 [employer] Work Phone: Tobacco use status CPHS b) No [employer] Work Phone: Laboratory - Cytologyon 05-25 Cytology report Cyto stain.thin prep Doc (Cvx/Vag) [employer] Phone: MANAGER TRACK - Office Visiton 05-25 MANAGER TRACK - Office Visit Diagnoses/Problems Assessed Screening for cervical cancer (V76.2) (Z12.4) Screening for breast cancer (V76.10) (Z12.39) Women's annual routine gynecological examination (V72.31) (Z01.419) Orders PAP ENVIRONMENTAL MONITORING TECHNICIAN, Cytology; Status:In Progress - Specimen/Data Collected; Done: 13Jun2021 Last Menstrual Period (LMP): : 05/16/2021 PAP - Site : CERVICAL Cytology Order : ThinPrep PAP, Screening, HPV Reflex - Include Genotyping Follow-up visit in 12 months Outpatient Follow-up Status: Hold For - Scheduling Requested for: 13Jun2021 Provider Impressions 1) annual Exam-Cervical,colon and breast cancer screening guidelines reviewed. CBE benign. Colon cancer screening is up to date. Pap obtained today. Reviewed HPV vaccine and guidelines. Discussed safe sex practices. Discussed diet and exercise. Reviewed bone health, namely exercise with vitamin D/calcium. Reviewed fertility goals. Reviewed hereditary cancer screening. Discussed that patient is not at increased risk. All questions answered. Chief Complaint PT IS HERE TODAY FOR HER ANNUAL EXAM. LAST PAP WAS 03/26/18, NIL. STATES OVER THE SUMMER WAS HAVING PELVIC PAIN AFTER EXERCISING AND AFTER INTERCOURSE SHE WOULD HAVE A LOT OF PAIN, BURNING FEELING THAT WOULD LAST 5-10 MIN. HAPPENS ON AND OFF. 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 LMP: 05/16/2021 History of Present [id number] G0 presents for annual exam. Patient safe at home denies abuse. Patient sexually active without concern. Patient off control preventing but not trying for . Patient does occasional self breast exams no lumps bumps masses. Patient has about a month of pain in the middle of last year that were increased with activity but resolved on its own. Patient notes rare dyspareunia, less than once every 2 months. Patient working on physical activity. Patient has no other acute concern Review of Systems Constitutional: No fevers, chills Eye:no vision changes Respiratory: no SOB Cardiovascular: no chest pain Breast: No lump/mass or discharge Gastrointestinal: No nausea, vomiting, diarrhea, constipation, abdominal pain Genitourinary:no dysuria Gynecology: See HPI Endocrine: No heat or cold intolerance Musculoskeletal: No decreased ROM Skin:No rash Neurologic: No numbness tingling Psychiatric: No anxiety, depression All other: all other systems reviewed and negative for complaint Active Problems Problems Contraceptive management (V25.9) (Z30.9) Screening for breast cancer (V76.10) (Z12.39) Screening for cervical cancer (V76.2) (Z12.4) Women's annual routine gynecological examination (V72.31) (Z01.419) Past Medical History Problems History of depression (V11.8) (Z86.59) History of Menarche (V21.8) AGE 13 History of Pap test, as part of routine gynecological examination (V76.2) (Z01.419) 03/26/2018; NIL Surgical History Problems No history of surgery Family History Mother Family history of migraine headaches (V17.2) (Z82.0) Father Family history of hypertension (V17.49) (Z82.49) Family history of Psychological disorder Social History Problems Does not use illicit drugs (V49.89) (Z78.9) Never a smoker Occasional alcohol use Sexually active Allergies Medication No Known Drug Allergies Recorded By: Chlesea Juan; 05/12/2019 3:13:10 PM Current Meds Medication NameInstruction No Reported Medications Vitals Vital Signs Recorded: 13Jun2021 02:59PM [id number] Rrownoisx46 Height5 ft 8 in Pedhor734 lb 8.96 oz BMI Qxagegxxnd95.45 kg/m2 BSA Calculated1.96 Tobacco Useb) No [id number] Physical Exam General: None acute distress Eye: Intraocular movements are intact HEENT: Normocephalic Cardiovascular: Regular rate rhythm Respiratory: Lungs are clear to auscultation, respirations are nonlabored Breast: No masses no tenderness no discharge no adenopathy or skin changes Gastrointestinal: Soft nontender nondistended normal bowel sounds Gynecology: External genitalia within normal limits for age. Urethral meatus normal bladder nontender. Vagina without discharge. No vaginal bleeding. Small nulliparous cervix. No lesions. No CMT. Uterus mobile midline nontender. No levator ani tenderness. No adnexal tenderness. No adnexal masses Musculoskeletal: Normal range of motion Skin: Warm and dry Neurologic: Alert and oriented x3 Psychiatric: Cooperative appropriate mood and affect. Signatures Electronically signed by : Amaury Ibarra DO; Jun 13 2021 4:11PM EST (Author) Normal [facility] CORONAVIRUS 2019 BY PCRon SARS-CoV-2 (COVID-19) RNA AUSTYN+probe Ql (Unsp spec) Not detected Normal Not Detected [facility] Comment on above: Result Comment: . This assay is designed to detect the N, ORF1ab and/or S genes of SARS-CoV-2 via nucleic acid amplification. A Negative (NOT DETECTED) result does not preclude 2019-nCoV infection since the adequacy of sample collection and/or low viral burden may result in presence of viral nucleic acids below the clinical sensitivity of this test method. Negative (NOT DETECTED) result should not be used as the sole basis for treatment or other patient management decisions. Rather negative results should be combined with clinical observations, patient history, and epidemiological information to make patient management decisions. Fact sheet for providers: https://www.fda.gov/media/269347/download Fact sheet for patients: https://www.fda.gov/media/974232/download This test has received FDA Emergency Use Authorization (EUA) and has been verified by [facility] ([facility]). This test is only authorized for the duration of time that circumstances exist to justify the authorization of the emergency use of in vitro diagnostic tests for the detection of SARS-CoV-2 virus and/or diagnosis of COVID-19 infection under section 564(b)(1) of the Act, 21 U.S.C. 360bbb-3(b)(1), unless the authorization is terminated or revoked sooner. [facility] is certified under CLIA-88 as qualified to perform high complexity testing. Testing is performed in the [facility] laboratories located at [address] [place] [address]. Performed By: #### C OV19 #### [address] [place] [address] Covid 19 Resultson 1 SARS-CoV-2 (COVID-19) RNA AUSTYN+probe Ql (Unsp spec) NEGATIVE COVID-19 Test Coronaviruses are common world-wide and are the cause of many common colds. SARS-COV2 is a new coronavirus that began circulating worldwide in 2019 so we are calling it COVID-19. It has been estimated that four out of five patients with COVID-19 will recover at home without the need for medical attention. Symptoms of COVID-19 may include cough, fever, shortness of breath, loss of taste or smell and other flu-like symptoms including chills, sore muscles, sore throat, and headache. Severe illness is more common in older people and people with other health problems such as high blood pressure, obesity, and immune system problems. If the test is positive, you have COVID-19. You will be contacted by the ordering physicians office and instructed to remain on home isolation, in accordance with CDC guidelines. You may also be contacted by the [place] Department of Health to see if any of your close contacts may have been exposed to the virus and need to quarantine. If the test is negative, you likely do not have COVID-19 at this time, but you still may have a different illness that can spread to other people (like Influenza, or the Flu) and could still be at risk for getting COVID-19. We recommend that you stay away from other people to limit the spread of illness until your symptoms are improving and you are fever-free for 24 hours without the use of fever lowering medications such as acetaminophen or ibuprofen. No test is 100% accurate so if you are still concerned you may have COVID-19, talk to your doctor about the need to continue to stay away from others. Medicines Unless your provider told you not to use the following: Acetaminophen (Tylenol and others) is generally safe. Anti-inflammatory medications, such as Ibuprofen (Advil or Motrin) or Naproxen (Aleve) can also be used. Lvmo-qsa-fmaedbq cough and cold medicines can be used according to the instructions on the package. Some boxu-fkc-bcghzsv medicines also contain acetaminophen. Make sure you are not taking more than your recommended dose. For those not hospitalized, there is no specific treatment available for this illness. Antibiotics do not treat Coronaviruses. Follow-Up Follow up with your doctor by scheduling a virtual visit or consider follow-up at one of our urgent care fever clinics. If you are having difficulty breathing, or are very weak and having difficulty standing, this is a medical emergency. Call 911 or have someone take you to the nearest emergency room immediately. If possible, wear a facemask. Additional guidance from the CDC for patients who tested POSITIVE for COVID-19 How to isolate: Isolate yourself in a specific room at home and limit your contact with others. Use a separate bathroom from other members of the household, when possible. Leave home only to get essential medical care. Do not go to work, school or public areas. Avoid using public transportation, ride-sharing, or taxis. Restrict contact with pets and other animals. If you must care for your pet or be around animals while you are sick, wash your hands before and after your interaction and wear a facemask. Make sure that shared spaces in the home have good airflow, such as by an air conditioner or an opened window, weather permitting. Personal Hygiene Procedures: Wear a face mask when in the same room as other people or pets. If a face mask interferes with your breathing, others should wear a mask when sharing space with you. Frequent hand-washing: wash your hands with soap and water for at least 20 seconds. If soap and water are not available, use alcohol-based hand broadcast field supervisor. Avoid touching your eyes, nose, and mouth with unwashed hands. Household Hygiene Procedures: Avoid sharing personal household items such as dishes, glassware, cups, eating utensils, towels or bedding with other people or pets in your home. After use, these items should be washed with soap and hot water. Disinfect all high-touch surfaces every day with antibacterial cleaning solutions such as Lysol wipes, bleach, cleansers, etc. High-touch surfaces include tabletops, doorknobs, bathroom fixtures, toilets, phones, keyboards, tablets and bedside tables. Immediately clean any surfaces that may have blood, poop or body fluids on them, using antibacterial cleaning solutions such as Lysol wipes, bleach, cleansers, etc. If clothing or bedding come into contact with blood, poop or body fluids, they should be washed immediately. Follow the directions on the laundry detergent and clothing labels but hot water is recommended when possible. Stopping home isolation precautions: If possible, consult your doctor before stopping home isolation precautions. According to the CDC, you can discontinue home isolation precautions when you have met both of these criteria: Your fever and respiratory symptoms have been gone for 24 dagoberto (more content not included)... Normal [facility] CORONAVIRUS 2019 BY PCRon DATE OF SYMPTOM ONSET [[id number]]? [id number] [facility] Comment on above: Performed By: #### COV19 #### [facility] [address] [place] [address] Lab Specimen Source Nasal, Nasopharyngeal [facility] Comment on above: Performed By: #### COV19 #### [facility] [address] [place] [address] Provider Note - ED v2on 09 Provider Note - ED v2 Provider Note - ED v2: Chart Review ED NOTES ED NOTES: Complaints of Covid exposure. 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 Patient says she started with a sore throat yesterday. Patient also has body aches and headaches. HISTORY OF PRESENTING ILLNESS MONICA is a 25 year old Female and was seen by me at 29-Dec-2020 11:53. The historian is the patient. Triage Information: Most recent Vital Sign Value Date PAST MEDICAL HISTORY ATTESTATION: I have reviewed and confirmed nurse's/medic's notes for patient's medications, allergies, and medical, surgical, family and social history PSYCHOSOCIAL SCREENING: NO: concerns for safety at home, feelings of depression, feels like hurting others and feels like hurting self ALLERGIES/INTOLERANCES: No Known Allergies HEALTH HISTORY: No documented data. OUTPATIENT MEDICATIONS: Home Medications Review Status for Reconciliation: Incomplete Med Status: Incomplete Medication History Drug Name: Ortho Tri-Cyclen Instructions: null Drug Name: amoxicillin-clavulanate 875 mg-125 mg oral tablet Instructions: 875 milligram(s) orally 2 times a day Drug Name: Bromfed DM oral syrup Instructions: 5 milliliter(s) orally 4 times a day, As Needed -for cough Drug Name: predniSONE 10 mg oral tablet Instructions: 1 tab(s) orally 2 times a day SIGNIFICANT EVENTS: No documented data. MANAGER TRACK: Is : no Is : no REVIEW OF SYSTEMS CONSTITUTIONAL: POSITIVE for: malaise ENMT Throat/Neck: POSITIVE for: throat pain NEUROLOGICAL: POSITIVE for: headache; All other systems reviewed and are negative RESULTS/VITAL SIGNS VITAL SIGNS: T PRBP SpO2O2(LPM) %FiO2 Method 29-Dec-2020 11:38:[id number] 98 PHYSICAL EXAM CONSTITUTIONAL: Well appearing, well nourished, awake, alert, oriented to person, place, time/situation and in no apparent distress. HENMT: Airway patent, Nasal mucosa clear. Mouth with normal mucosa. Throat has no vesicles, no oropharyngeal exudates and uvula is midline. Face with no lymph node enlargement. EYES: pupils are accommodating CARDIOVASCULAR: Normal rate, regular rhythm. RESPIRATORY: Breath sounds clear and equal bilaterally and unlabored. no Rales rhonchi or crackles. GASTROINTESTINAL: Abdomen soft, non-distended, no rebound, no guarding. Bowel sounds normal in all 4 quadrants. GENITOURINARY: No discharge, no lesions. MUSCULOSKELETAL: range of motion is not limited, no muscle or joint tenderness. NEUROLOGICAL: Alert and oriented, no focal deficits, no motor or sensory deficits. SKIN: Skin normal color for race, warm, dry and intact. No evidence of trauma. PSYCHIATRIC: Alert and oriented to person, place, time/situation. normal mood and affect. No apparent risk to self or others. HEME/LYMPH: No cervical adenopathy. CLINICAL IMPRESSION Diagnosis/Annotation: ED Dx Name:Close exposure to COVID-19 virus Code:Z20.822 Disposition: discharged Type: home ATTESTATION Comments/Additional Findings: Patient was swabbed for Covid sent home to self quarantine. Patient was okay with this care plan. CRITICAL CARE TIME Is this a critically ill patient: no Electronic Signatures for Addendum Section: Lucille Jones (CREATIVE SERVICES SPECIALIST-SHIRT FOLDER) (Signed Addendum 30-Dec-2020 09:24) notified patient Electronic Signatures: Lucille Jones (CREATIVE SERVICES SPECIALIST-SHIRT FOLDER) (Signed 30-Dec-2020 09:24) Authored: ED Notes, HPI, PMH, ROS, PE, Results/Vital Signs, Clinical Impression, Attestation, Chart Review, Scores Last Updated: 30-Dec-2020 09:24 by Lucille Jones (CREATIVE SERVICES SPECIALIST-[facility]) [facility] IGP W/hpv Rfx [id number] 04-03 Diagnosis: See Ref Lab Report [facility] Comment on above: Order Comment: LMP: 09/2017 Performed By: #### 1 [id number] ####NELLY [employer] [id number] [place] [address] Pathology ([facility])on 03-26-2018 Pathology ([facility]) FINAL GYNECOLOGIC CY TOLOGY [id number] ADEQUACYSatisfactory for Evaluation. Endocervical cells/transformation zone componentpresent.GENERAL CATEGORIZATIONNegative for Intraepithelial Lesion or MalignancyCOMMENTSample has been treated with glacial acetic acid for excessive blood, debris,inflammation and/or lubricant.CLINICAL HISTORYComment: LMP: 09/2017SPECIMEN(A) SCREENING CERVICAL/ENDOCERVICAL THIN PREP VIALPerformed at [facility], [address] [place], [place] [address]Screened by: Signed Out by: JOSEPH VALLECILLO Shaker Tender Reported: 04/01/2018 Normal [facility] Comment on above: Performed By: #### ENVIRONMENTAL MONITORING TECHNICIAN ####[facility] [address] [place] [address] Vital Signs Date Time Vital Sign Value Performing Clinician Terrell ding 07-11-2024 10:43-0400 Body height 172.7 cm Irma Stafford MD Work Phone: [facility] 07-11-2024 10:43-0400 Body mass index (BMI) [Ratio] 29.5 kg/m2 Irma Stafford MD Work Phone: [facility] 07-11-2024 10:43-0400 Body weight 88 kg Irma Stafford MD Work Phone: [facility] 07-11-2024 10:43-0400 Diastolic blood pressure 80 mm[Hg] Irma Stafford MD Work Phone: [facility] 07-11-2024 10:43-0400 Heart rate 93 /min Irma Stafford MD Work Phone: [facility] 07-11-2024 10:43-0400 Systolic blood pressure 121 mm[Hg] Irma Stafford MD Work Phone: [facility] 01-30-2022 15:51-0400 Body height 172.72 cm Aure Gordon Work Phone: [employer] Work Phone: 01-30-2022 15:51-0400 Body mass index (BMI) [Ratio] 26.17 kg/m2 Aure Gordon Work Phone: [employer] Work Phone: 01-30-2022 15:51-0400 Body surface area Derived from formula 1.92 m2 Aure Gordon Work Phone: [employer] Work Phone: 01-30-2022 15:51-0400 Body weight 78.08 kg Aure Gordon Work Phone: [employer] Work Phone: 01-30-2022 15:51-0400 Diastolic blood pressure 70 mm[Hg] Aure Gordon Work Phone: [facility] Work Phone: 01-30-2022 15:51-0400 Heart rate 88 /min Aure Gordon Work Phone: [employer] Work Phone: 01-30-2022 15:51-0400 SaO2% (BldA) [Mass fraction] 99 % Aure Gordon Work Phone: [facility] Work Phone: 01-30-2022 15:51-0400 Systolic blood pressure 110 mm[Hg] Aure Gordon Work Phone: [facility] Work Phone: 01-20-2022 13:27-0400 Body height 172.72 cm Aure Gordon Work Phone: [facility] Work Phone: 01-20-2022 13:27-0400 Body mass index (BMI) [Ratio] 27 kg/m2 Aure Gordon Work Phone: [facility] Work Phone: 01-20-2022 13:27-0400 Body surface area Derived from formula 1.94 m2 Aure Gordon Work Phone: [employer] Work Phone: 01-20-2022 13:27-0400 Body weight 80.54 kg Aure Gordon Work Phone: [employer] Work Phone: 01-20-2022 13:27-0400 Diastolic blood pressure 82 mm[Hg] Aure Gordon Work Phone: [employer] Work Phone: 01-20-2022 13:27-0400 Heart rate 91 /min Aure Gordon Work Phone: [facility] Work Phone: 01-20-2022 13:27-0400 SaO2% (BldA) [Mass fraction] 98 % Aure Gordon Work Phone: [facility] Work Phone: 01-20-2022 13:27-0400 Systolic blood pressure 122 mm[Hg] Aure Gordon Work Phone: [facility] Work Phone: 12-29-2021 16:23-0400 Body height 172.72 cm Aure Gordon Work Phone: [facility] Work Phone: 12-29-2021 16:23-0400 Body mass index (BMI) [Ratio] 27 kg/m2 Aure Gordon Work Phone: [facility] Work Phone: 12-29-2021 16:23-0400 Body surface area Derived from formula 1.94 m2 Aure Gorodn Work Phone: [facility] Work Phone: 12-29-2021 16:23-0400 Body weight 80.54 kg Aure Gordon Work Phone: [facility] Work Phone: 12-29-2021 16:23-0400 Diastolic blood pressure 80 mm[Hg] Aure Gordon Work Phone: [facility] Work Phone: 12-29-2021 16:23-0400 Heart rate 97 /min Aure Gordon Work Phone: [facility] Work Phone: 12-29-2021 16:23-0400 SaO2% (BldA) [Mass fraction] 99 % Aure Gordon Work Phone: [facility] Work Phone: 12-29-2021 16:23-0400 Systolic blood pressure 110 mm[Hg] Aure Gordon Work Phone: [facility] Work Phone: 12-14-2021 08:43-0400 Body height 172.72 cm Aure Gordon Work Phone: [facility] Work Phone: 12-14-2021 08:43-0400 Body mass index (BMI) [Ratio] 27.84 kg/m2 Aure Gordon Work Phone: [employer] Work Phone: 12-14-2021 08:43-0400 Body surface area Derived from formula 1.97 m2 Aure Gordon Work Phone: [facility] Work Phone: 12-14-2021 08:43-0400 Body weight 83.07 kg Aure Gordon Work Phone: [facility] Work Phone: 12-14-2021 08:43-0400 Diastolic blood pressure 70 mm[Hg] Aure Gordon Work Phone: [facility] Work Phone: 12-14-2021 08:43-0400 Heart rate 91 /min Aure Gordon Work Phone: [facility] Work Phone: 12-14-2021 08:43-0400 SaO2% (BldA) [Mass fraction] 100 % Aure Godron Work Phone: [facility] Work Phone: 12-14-2021 08:43-0400 Systolic blood pressure 100 mm[Hg] Aure Gordon Work Phone: [facility] Work Phone: 11-03-2021 22:03-0400 Body height 170.1 cm Aure Gordon Other Phone: [facility] 11-03-2021 22:03-0400 Body temperature 98.78 [degF] Aure Gordon Other Phone: [facility] 11-03-2021 22:03-0400 Body weight 79 kg Aure Gordon Other Phone: [facility] 11-03-2021 22:03-0400 Diastolic blood pressure 95 mm[Hg] Aure Colesd Other Phone: [facility] 11-03-2021 22:03-0400 Heart rate 88 /min Aure Gordon Other Phone: [facility] 11-03-2021 22:03-0400 Respiratory rate 16 /min Aure Gordon Other Phone: [facility] 11-03-2021 22:03-0400 SaO2% (BldA) [Mass fraction] 98 % Aure Gordon Other Phone: [facility] 11-03-2021 22:03-0400 Systolic blood pressure 159 mm[Hg] Aure Gordon Other Phone: [facility] 06-13-2021 14:59-0500 Body height 172.72 cm Aure Sydnee Colesd Work Phone: [facility] [employer] Work Phone: 06-13-2021 14:59-0500 Body mass index (BMI) [Ratio] 27.45 kg/m2 Davider Sydnee Gordon Work Phone: [employer] Work Phone: 06-13-2021 14:59-0500 Body surface area Derived from formula 1.96 m2 Aure Colesd Work Phone: [employer] Phone: 06-13-2021 14:59-0500 Body weight 81.9 kg Christalecer D Gordon Work Phone: [employer] Work Phone: 06-13-2021 14:59-0500 Diastolic blood pressure 80 mm[Hg] Christopher D Gordon Work Phone: [employer] Work Phone: 06-13-2021 14:59-0500 Systolic blood pressure 114 mm[Hg] Christopher D Gordon Work Phone: [employer] Work Phone: 12-29-2020 13:38-0400 Body height 170.1 cm Brandonophlisa Colesd Other Phone: [facility] 12-29-2020 13:38-0400 Body temperature 97.88 [degF] Brandonopher Gordon Other Phone: [facility] 12-29-2020 13:38-0400 Diastolic blood pressure 82 mm[Hg] Christopher Gordon Other Phone: [facility] 12-29-2020 13:38-0400 Heart rate 83 /min Christopher Gordon Other Phone: [facility] 12-29-2020 13:38-0400 Respiratory rate 16 /min Christopher Gordon Other Phone: [facility] 12-29-2020 13:38-0400 SaO2% (BldA) [Mass fraction] 98 % Christopher Gordon Other Phone: [facility] 12-29-2020 13:38-0400 Systolic blood pressure 127 mm[Hg] Christopher Gordon Other Phone: [facility] Encounters Encounter Date Encounter Type Care Provider Facility Start: 07-20-2024 End: 09-19-2024 Follow-up encounter Irma Stafford MD Work Phone: [facility] Comment on above: Thinprep Pap Smear, Vaginitis DNA Probes Start: 07-11-2024 End: 07-11-2024 ambulatory IRMA STAFFORD [facility] Start: 07-11-2024 End: 07-11-2024 Encounter for gynecological examination (general) (routine) without abnormal findings IRMA STAFFORD [facility] Start: 07-11-2024 End: 07-11-2024 Initial preventive medicine new pt age 18-39yrs Irma Stafford MD Work Phone: [facility] Comment on above: Well woman exam with routine gynecological exam (Primary Dx); Abnormal uterine bleeding (AUB); Friable cervix Start: 07-11-2024 End: 07-11-2024 Patient encounter procedure Irma Stafford MD Work Phone: [facility] Start: 01-30-2022 Office outpatient vi sit 15 minutes Aure Gordon Work Phone: [facility] Work Phone: Start: 01-30-2022 ambulatory Aure Gordon Facility:[id number] Start: 01-20-2022 Office outpatient vi sit 15 minutes Aure Gordon Work Phone: [facility] Work Phone: Start: 01-20-2022 ambulatory Aure Gordon Facility:[id number] Start: 01-03-2022 AUDIT Aure Gordon Work Phone: [facility] Work Phone: Start: 12-29-2021 Office outpatient vi sit 15 minutes Aure Gordon Work Phone: [facility] Work Phone: Start: 12-29-2021 ambulatory Aure Gordon Facility:[id number] Start: 12-14-2021 Initial preventive medicine new pt age 18-39yrs Brandonniko Sydnee Gordon Work Phone: [facility] Work Phone: Start: 12-14-2021 ambulatory Brandonniko Gordon Facility:[id number] Start: 11-03-2021 End: 11-03-2021 Emergency department patient visit Will Sarabia [facility] Emergency 12 Start: 06-21-2021 Chart Update Brandonniko Sydnee Gordon Work Phone: [employer] Work Phone: Start: 06-13-2021 Periodic preventive med est patient 18-39 yrs Aure Gordon Work Phone: [employer] Work Phone: Start: 06-13-2021 ambulatory Aure Gordon Facility:[place] Start: 12-29-2020 End: 12-29-2020 Emergency department patient visit Lucille Jones [facility] 03 Start: 03-26-2018 End: 03-27-2018 Patient encounter procedure Shaista James Facility:[facility] Start: 03-26-2018 End: 03-27-2018 Patient encounter procedure Shaista James Facility:[facility] Encounter for gynecological examination (general) (routine) without abnormal findings Aure Castro Gordon Work Phone: [employer] Work Phone: Comment on above: 03/26/2018; NIL; Menarche Aure coyne Work Phone: [employer] Work Phone: Comment on above: AGE 13; Patient encounter procedure Aure Castro Gordon Work Phone: [employer] Work Phone: Patient encounter status Valente rajni Castro Gordon Work Phone: [facility] Work Phone: Procedures Date Procedure Procedure Detail Performing Clinician Start: 07-11-2024 Iadna lory specie s direct probe tq Irma Stafford MD Work Phone: Start: 07-11-2024 Microscopic observat ion [Identifier] in Cervix by Cyto stain Irma Stafford MD Work Phone: Extraction of wisdom tooth Brandonniko Castro Cesar Work Phone: No history of surgery Brandon niko Castro Gordon Work Phone: Plan of Treatment Date Care Activity Detail Author Start: 11-04-2031 Tetanus vaccination Tetanus: Every 10yrs [facility] Start: 07-12-2027 Screening for malignant neoplasm of cervix [facility] Start: 07-11-2025 History and physical examination, annual for health maintenance Wellness Visit [facility] Start: 12-22-2024 Influenza vaccination Influenza Vaccine (Season Ended) [facility] Start: 2024 Screening for malignant neoplasm of cervix HPV/Cotest [facility] Start: 08-18-2024 End: 08-18-2024 Patient encounter procedure 08/18/2024 11:15 AM EDT Office Visit [facility] [address] [phone] Irma Stafford MD [address] [address] [facility] Start: 08-18-2024 End: 08-18-2024 Professional / ancillary services management 08/18/2024 10:30 AM EDT Ancillary Procedure [facility] [address] [phone] Irma Stafford MD [address] [address] [facility] Start: 12-23-2023 COVID-19 Vaccine ( season) COVID-19 Vaccine ( season) [facility] Start: 12-23-2023 Influenza vaccination Influenza Vaccine (#1) [facility] Start: 01-30-2022 EPV, Provider: Aure Gordon, Status: Pen, Time: 3:40 PM EPV, Provider: Aure Gordon, Status: Pen, Time: 3:40 PM [facility] Work Phone: Start: 06-13-2021 Patient encounter procedure SEPIDEH Perrin Start: 08-24-2015 Screening for malignant neoplasm of cervix Pap Smear [facility] Start: 2012 Hepatitis C screening Hepatitis C Screening [facility] Start: 2009 HIV screening HIV Screening [facility] Start: 2006 Depression screening using PHQ-9 (Patient Health Questionnaire 9) score Depression Screening/Follow-Up (PHQ-2/9) [facility] End: 07-11-2025 Dihydrotestosterone Dihydrotestosterone Lab Routine Abnormal uterine bleeding (AUB) 1 Occurrences starting 07/11/2024 until 07/11/2025 [facility] Comment on above: 1 Occurrences starting 07/11/2024 until 07/11/2025 End: 07-11-2025 Hemoglobin A1c/Hemoglobin.total in Blood Hemoglobin A1c Lab Routine Well woman exam with routine gynecological exam 1 Occurrences starting 07/11/2024 until 07/11/2025 [facility] Comment on above: 1 Occurrences starting 07/11/2024 until 07/11/2025 End: 07-11-2025 Lipid 1996 panel - Serum or Plasma Lipid Panel Lab Routine Well woman exam with routine gynecological exam 1 Occurrences starting 07/11/2024 until 07/11/2025 [facility] Comment on above: 1 Occurrences starting 07/11/2024 until 07/11/2025 Microscopic examinat ion of vaginal Papanicolaou smear Thinprep Pap Smear Pathology and Cytology Routine Well woman exam with routine gynecological exam Ordered: 07/11/2024 [facility] Work Phone: Comment on above: Ordered: 07/11/2024 End: 07-11-2025 Plasma dehydroepiandrosterone sulfate level DHEA-Sulfate Lab Routine Abnormal uterine bleeding (AUB) 1 Occurrences starting 07/11/2024 until 07/11/2025 [facility] Comment on above: 1 Occurrences starting 07/11/2024 until 07/11/2025 End: 07-11-2025 Prolactin [Mass/volume] in Serum or Plasma Prolactin Lab Routine Abnormal uterine bleeding (AUB) 1 Occurrences starting 07/11/2024 until 07/11/2025 [facility] Comment on above: 1 Occurrences starting 07/11/2024 until 07/11/2025 End: 07-11-2025 Testosterone Free [Mass/volume] in Serum or Plasma Testosterone, Total and Free (Calculated) Lab Routine Abnormal uterine bleeding (AUB) 1 Occurrences starting 07/11/2024 until 07/11/2025 [facility] Comment on above: 1 Occurrences starting 07/11/2024 until 07/11/2025 End: 07-11-2025 Thyrotropin [Units/volume] in Serum or Plasma TSH Lab Routine Abnormal uterine bleeding (AUB) 1 Occurrences starting 07/11/2024 until 07/11/2025 [facility] Comment on above: 1 Occurrences starting 07/11/2024 until 07/11/2025 End: 07-11-2025 US Pelvis transvaginal US Transvaginal Imaging Routine Abnormal uterine bleeding (AUB) 1 Occurrences starting 07/11/2024 until 07/11/2025 [facility] Comment on above: 1 Occurrences starting 07/11/2024 until 07/11/2025 Immunizations Immunization Date Immunization Notes Care Provider Tristian ford 11-03-2021 tetanus toxoid, redu jesica diphtheria toxoid, and acellular pertussis vaccine, adsorbed Aure Gordon Other Phone: [facility] 03-15-2021 Pfizer-BioNTech COVID-19 Vacc 30 MCG/0.3ML Intramuscular Suspension Aure Gordon Work Phone: -[facility] Work Phone: 07-02-2020 Pfizer-BioNTech COVID-19 Vacc 30 MCG/0.3ML Intramuscular Suspension Aure Gordon Work Phone: [facility] Work Phone: 06-11-2020 Pfizer-BioNTech COVID-19 Vacc 30 MCG/0.3ML Intramuscular Suspension Aure Gordon Work Phone: -[facility] Work Phone: 01-16-2020 influenza, injectabl e, quadrivalent, preservative free Aure Gordon Work Phone: -[facility] Work Phone: 01-16-2020 influenza virus vaccine, unspecified formulation Irma Stafford MD Work Phone: [facility] 11-18-2019 tuberculin skin test ; purified protein derivative solution, intradermal Aure Gordon Work Phone: -[facility] Work Phone: 05-03-2016 tuberculin skin test ; purified protein derivative solution, intradermal rIma Stafford MD Work Phone: [facility] 07-22-2012 human papilloma viru s vaccine, quadrivalent Irma Stafford MD Work Phone: [facility] 12-18-2011 hepatitis A vaccine, pediatric/adolescent dosage, 2 dose schedule Irma Stafford MD Work Phone: [facility] 12-18-2011 human papilloma viru s vaccine, quadrivalent Irma Stafford MD Work Phone: [facility] 12-23-2009 human papilloma viru s vaccine, quadrivalent Irma Stafford MD Work Phone: [facility] 12-23-2009 meningococcal polysaccharide (groups A, C, Y and W-135) diphtheria toxoid conjugate vaccine (MCV4P) Irma Stafford MD Work Phone: [facility] 12-23-2009 varicella virus vaccine Valentin Stafford MD Work Phone: [facility] 12-14-2005 tetanus toxoid, redu jesica diphtheria toxoid, and acellular pertussis vaccine, adsorbed Irma Stafford MD Work Phone: [facility] 04-02-2003 influenza virus vaccine, unspecified formulation Irma Stafford MD Work Phone: [facility] 03-15-1999 diphtheria, tetanus toxoids and acellular pertussis vaccine Irma Stafford MD Work Phone: [facility] 03-15-1999 measles, mumps and rubella virus vaccine Irma Stafford MD Work Phone: [facility] 03-15-1999 poliovirus vaccine, inactivated Irma Stafford MD Work Phone: [facility] 02-29-1996 diphtheria, tetanus toxoids and acellular pertussis vaccine Irma Stafford MD Work Phone: [facility] 12-09-1995 haemophilus influenz ae type b vaccine, PRP-T conjugate Irma Stafford MD Work Phone: [facility] 11-29-1995 measles, mumps and rubella virus vaccine Irma Stafford MD Work Phone: [facility] 1995 varicella virus vaccine Valentin Stafford MD Work Phone: [facility] 04-25-1995 diphtheria, tetanus toxoids and acellular pertussis vaccine Irma Stafford MD Work Phone: [facility] 04-25-1995 haemophilus influenz ae type b vaccine, PRP-T conjugate Irma Stafford MD Work Phone: [facility] 04-25-1995 hepatitis B vaccine, pediatric or pediatric/adolescent dosage Irma Stafford MD Work Phone: [facility] 04-25-1995 poliovirus vaccine, inactivated Iram Stafford MD Work Phone: [facility] 02-05-1995 diphtheria, tetanus toxoids and acellular pertussis vaccine Irma Stafford MD Work Phone: [facility] 02-05-1995 haemophilus influenz ae type b vaccine, PRP-T conjugate Irma Stafford MD Work Phone: [facility] 02-05-1995 poliovirus vaccine, inactivated Irma Stafford MD Work Phone: [facility] 1994 diphtheria, tetanus toxoids and acellular pertussis vaccine Irma Stafford MD Work Phone: [facility] 1994 haemophilus influenz ae type b vaccine, PRP-T conjugate Irma Stafford MD Work Phone: [facility] 1994 hepatitis B vaccine, pediatric or pediatric/adolescent dosage Irma Stafford MD Work Phone: [facility] 1994 poliovirus vaccine, inactivated Irma Stafford MD Work Phone: [facility] 1994 hepatitis B vaccine, pediatric or pediatric/adolescent dosage Irma Stafford MD Work Phone: [facility] Payers Date Payer Category Payer Managed Care (privat e) or private health insurance (indemnity), not otherwise specified [employer] [id number] 2022 Private Health Insurance [id number] 1994 Unknown [id number] 1994 Unknown [id number] 1994 Unknown [id number] 1994 Unknown [id number] 1994 Unknown [id number] 1994 Unknown [id number] 1994 Unknown [id number] Unknown Unknown [id number] Social History Date Type Detail Facility Assertion Unknown if ever smoked Women [place] [id number] [place] Work Phone: Tobacco smoking consumption unknown [facility] Start: 07-11-2024 Occasional alcohol use Occasional alcohol use [place] [address] [place] Work Phone: Comment on above: 1 drink a week; Start: 07-11-2024 Tobacco smoking status NHIS Never smoked tobacco [facility] Start: 07-11-2024 Tobacco use and exposure Smokeless tobacco non-user [facility] Start: 07-11-2024 Tobacco use panel [facility] Start: 1995 Sex assigned at Not on file [facility] NEGATED: Highlighted rowStart: NINF History of tobacco use Passive smoker [facility] Functional Status Date Assessment Result Facility NEGATED: Highlighted row Functional performance Functional status health issues are not documented Disease [place] [address] [place] Work Phone: Mental Status Date Assessment Result Facility NEGATED: Highlighted row Cognitive function [Interpretation] Cognitive status health issues are not documented Disease [place] [address] [place] Work Phone: Progress note 07-11-2024 Note Date & Type Note Facility 07-11-2024 Note [facility] woman visit Subjective Monica Silveira is a 28 y.o. who presents today for her well woman visit. She has irregular periods that last for the past 5 years. She mentioned that prior to this she was on COCs with regular periods but got and discontinued use. She then started having two periods a months with the first being mostly spotting for about 2-3 days then no bleeding for 5 days and then a full 5 days of bleeding. Currently her period last about 5-6 days with moderate bleeding. She does experience moderate pain for one day (heaviest day). She states that she has started exercising again about 3 times weekly for about 60 minutes each time. She endorses having a pretty balanced diet. She is sexually active and actively trying to conceive for the past 8 months but her partner is being worked up with his urologist for varicocele. She denies pelvic pain, foul smelling vaginal discharge, vaginal itching , dysuria . Date of last pap: 2021 Results normal?: yes History reviewed. No pertinent past medical history. No current outpatient medications on file. History reviewed. No pertinent surgical history. Allergies[1] Any family history of: Breast cancer: No Colon cancer: No Uterine cancer: No Ovarian cancer: No Do you use alcohol? Yes, 2-3 drinks a week Do you smoke? No Do you use street drugs? No Do you use caffeine? Yes, 1 cup daily The following portions of the patient's history were reviewed and updated as appropriate: allergies, current medications, past family history, past medical history, past social history, past surgical history and problem list. Review of Systems Constitutional: Positive for activity change. Gastrointestinal: Negative for abdominal pain. Genitourinary: Positive for menstrual problem. Negative for dysuria, pelvic pain, urgency and vaginal discharge. Skin: Negative for color change. Objective: Physical Exam BP 121/80 Pulse 93 Ht 5' 8 Wt 88 kg (194 lb) LMP 06/21/2024 (Within Days) BMI 29.50 kg/m General: Alert, well nourished, in no apparent distress HEENT: Normocephalic, atraumatic Lungs: no respiratory distress. Breast: Numerous Nevi, no masses, no discharge, no tenderness to palpation, no axillary lymphadenopathy Abdominal: Soft, no visible masses, no skin changes, non tender : VULVA: normal appearing vulva with no masses, tenderness or lesions VAGINA: normal appearing vagina with normal color and discharge, no lesions CERVIX: friable cervix without discharge or lesions. Silver nitrate used for bleeding after pap. There is no cervical motion tenderness on bimanual exam. UTERUS: uterus is normal size, shape, consistency and nontender ADNEXA: normal adnexa in size, nontender and no masses. Discussed elevated Body Mass Index (BMI): Advised regular exercise. Discussed elevated Body Mass Index (BMI): Advised healthy and appropriate diet. Rationale: Overweight (Findings) BMI Assessment/Plan: 1. Routine Gynecological Examination - PAP obtained today per guidelines. Discussed elevated Body Mass Index (BMI): Advised regular exercise. Discussed elevated Body Mass Index (BMI): Advised healthy and appropriate diet. Rationale: Overweight (Findings) BMI - Immunizations UTD per patient, s/p HPV vaccine 2.AUB -FU TVUS -FU AUB serology -Possible cervical polyp or vaginitis based on bleeding at the time of pap Irma Stafford MD Obstetrics and Gynecology [facility] [address] [place] [address] Irma Stafford MD [1] No Known Allergies AUTHENTICATED BY IRMA STAFFORD, ON 07/13/2024 19:47:39 [facility] Ambulatory History of Present illness Narrative 07-11-2024 Irma Stafford MD - 07/11/2024 10:52 AM EDT Note Date & Type Note Facility 07-11-2024 History of Presen t illness Narrative Images from the original note were not included. Well woman visit Subjective Monica Silveira is a 28 y.o. who presents today for her well woman visit. She has irregular periods that last for the past 5 years. She mentioned that prior to this she was on COCs with regular periods but got and discontinued use. She then started having two periods a months with the first being mostly spotting for about 2-3 days then no bleeding for 5 days and then a full 5 days of bleeding. Currently her period last about 5-6 days with moderate bleeding. She does experience moderate pain for one day (heaviest day). She states that she has started exercising again about 3 times weekly for about 60 minutes each time. She endorses having a pretty balanced diet. She is sexually active and actively trying to conceive for the past 8 months but her partner is being worked up with his urologist for varicocele. She denies pelvic pain, foul smelling vaginal discharge, vaginal itching , dysuria . Date of last pap: 2021 Results normal?: yes History reviewed. No pertinent past medical history. No current outpatient medications on file. History reviewed. No pertinent surgical history. Allergies[1] Any family history of: Breast cancer: No Colon cancer: No Uterine cancer: No Ovarian cancer: No Do you use alcohol? Yes, 2-3 drinks a week Do you smoke? No Do you use street drugs? No Do you use caffeine? Yes, 1 cup daily The following portions of the patient's history were reviewed and updated as appropriate: allergies, current medications, past family history, past medical history, past social history, past surgical history and problem list. Review of Systems Constitutional: Positive for activity change. Gastrointestinal: Negative for abdominal pain. Genitourinary: Positive for menstrual problem. Negative for dysuria, pelvic pain, urgency and vaginal discharge. Skin: Negative for color change. Objective: Physical Exam BP 121/80 Pulse 93 Ht 5' 8 Wt 88 kg (194 lb) LMP 06/21/2024 (Within Days) BMI 29.50 kg/m General: Alert, well nourished, in no apparent distress HEENT: Normocephalic, atraumatic Lungs: no respiratory distress. Breast: Numerous Nevi, no masses, no discharge, no tenderness to palpation, no axillary lymphadenopathy Abdominal: Soft, no visible masses, no skin changes, non tender : VULVA: normal appearing vulva with no masses, tenderness or lesions VAGINA: normal appearing vagina with normal color and discharge, no lesions CERVIX: friable cervix without discharge or lesions. Silver nitrate used for bleeding after pap. There is no cervical motion tenderness on bimanual exam. UTERUS: uterus is normal size, shape, consistency and nontender ADNEXA: normal adnexa in size, nontender and no masses. Discussed elevated Body Mass Index (BMI): Advised regular exercise. Discussed elevated Body Mass Index (BMI): Advised healthy and appropriate diet. Rationale: Overweight (Findings) BMI Assessment/Plan: 1. Routine Gynecological Examination - PAP obtained today per guidelines. Discussed elevated Body Mass Index (BMI): Advised regular exercise. Discussed elevated Body Mass Index (BMI): Advised healthy and appropriate diet. Rationale: Overweight (Findings) BMI - Immunizations UTD per patient, s/p HPV vaccine 2.AUB -FU TVUS -FU AUB serology -Possible cervical polyp or vaginitis based on bleeding at the time of pap Irma Stafford MD Obstetrics and Gynecology [facility] [address] [place] [address] Irma Stafford MD [1] No Known Allergies documented in this encounter [facility] History of Present illness Narrative 01-01-2022 Note Date & Type Note Facility 01-01-2022 History of Present illness Narrative SSRI made feel more anxious and nervous, nauseated, feeling better off of medicinesemotionally doing OK nownausea and insomnia betterchanged jobs in the past monthno ETOH usegoing to try counseling [facility] Work Phone: Clinical Note 06-13-2021 Note Date & Type Note Facility 06-13-2021 Note 6 Date of Procedure: 06/13/2021 Pathologist: [facility], Cytology Date Reported: 06/20/2021 Date Received: 06/14/2021 Submitting Physician: AMAURY IBARRA, DO FINAL CYTOLOGICAL INTERPRETATION A. THINPREP PAP CERVICAL: Specimen adequacy: SATISFACTORY FOR EVALUATION. Quality Indicator: Endocervical/transformation zone component is present. General Categorization: NEGATIVE FOR INTRAEPITHELIAL LESION OR MALIGNANCY. Ancillary Testing: Specimen does not meet the requisition-stated criteria for HPV testing. See Pap test interpretation above. This specimen has been analyzed by the [facility] System ([employer] an automated imaging and review system, which assists the laboratory in evaluating cells on ThinPrep Pap tests. Following automated imaging, selected ward from every slide were reviewed by a stucco mason and/or pathologist. Electronically Signed Out By [facility], Cytology//IK By the signature on this report, the individual or group listed as making the Final Interpretation/Diagnosis certifies that they have reviewed this case. Educational Note: Cervical cytology is a screening procedure primarily for squamous cancers and precursors and has associated false-negative and false-positive results as evidenced by published data. Your patient?s test should be interpreted in this context, together with patient?s history and clinical findings. Regular sampling and follow-up of unexplained clinical signs and symptoms are recommended to minimize false negative results. Clinical History Date of Last Menstrual Period: 05/16/2021 Other Clinical Conditions: HPV Reflex for ASC-US only - Include HPV Genotype Annual Clinical Diagnosis History: Screening for cervical cancer - (Z12.4) Source of Specimen A: THINPREP PAP CERVICAL [facility] Department of Pathology [address] [place] [address] Comment on above: Performed By: #### C #### [facility] [address] [place], [place] [id number] History of Present illness Narrative 06-13-2020 Note Date & Type Note Facility 06-13-2020 History of Present illness Narrative 25-year-old G0 presents for annual exam. Patient safe at home denies abuse. Patient sexually active without concern. Patient off control preventing but not trying for . Patient does occasional self breast exams no lumps bumps masses. Patient has about a month of pain in the middle of last year that were increased with activity but resolved on its own. Patient notes rare dyspareunia, less than once every 2 months. Patient working on physical activity. Patient has no other acute concern [address] Work Phone: History of Present illness Narrative 12-31-2019 Note Date & Type Note Facility 12-31-2019 History of Present illness Narrative Not feeling well for the past 2 years, getting worse, started a new job (making worse)feeling stressed and anxious, hard to sleep well at night, no panic, tearful at times, + irritable/edgy, some trouble with focus, + hopeless and helpless, some fatigue, no motivation to do thingshas been treated for emotions in the past (in high school)has had some SI, no plansthought about self mutilation+ ETOH (3 drinks a day/seltzer or wine), has tried to stop this summer, has cut back to 1 a weekno FHx of ETOH abusenever been hospitalized in the past for mood -[facility] Work Phone: Evaluation note Note Date & Type Note Facility Evaluation note Diagnosis Well woman exam with routine gynecological exam- Primary Routine gynecological examination Abnormal uterine bleeding (AUB) Friable cervix documented in this encounter [facility] History of Present illness Narrative Note Date & Type Note Facility History of Present illness Narrative Pap in May with [place], not on OCP, does not like how feels on OCPhas a spot on left shoulder, irritated at timesNo headache, chest pain, shortness of breath, dizziness, lightheadedness, or ed[place] GI issuesno joint aches and pains [facility] Work Phone: Summary Purpose Family History Unknown Family Member Name Dates Details Family history of hypertensi on: Father(V17.49, Z82.49) Status:Active Psychological disorder: Fath er Status:Active Family history of migraine h eadaches: Mother(V17.2, Z82.0) Status:Active Unknown Family Member Name Dates Details Family history of hypertensi on: Father(V17.49, Z82.49) Status:Active Psychological disorder: Fath er Status:Active Family history of migraine h eadaches: Mother(V17.2, Z82.0) Status:Active Unknown Family Member Name Dates Details Family history of hypertensi on: Father(V17.49, Z82.49) Status:Active Psychological disorder: Fath er Status:Active Family history of migraine h eadaches: Mother(V17.2, Z82.0) Status:Active HTN (hypertension), benign: Mother Status:Active Family history of diabetes m ellitus: Mother(V18.0, Z83.3) Status:Active Unknown Family Member Name Dates Details Family history of hypertensi on: Father(V17.49, Z82.49) Status:Active Psychological disorder: Fath er Status:Active Family history of migraine h eadaches: Mother(V17.2, Z82.0) Status:Active HTN (hypertension), benign: Mother Status:Active Family history of diabetes m ellitus: Mother(V18.0, Z83.3) Status:Active Unknown Family Member Name Dates Details Family history of hypertensi on: Father(V17.49, Z82.49) Status:Active Psychological disorder: Fath er Status:Active Family history of migraine h eadaches: Mother(V17.2, Z82.0) Status:Active HTN (hypertension), benign: Mother Status:Active Family history of diabetes m ellitus: Mother(V18.0, Z83.3) Status:Active Unknown Family Member Name Dates Details Family history of hypertensi on: Father(V17.49, Z82.49) Status:Active Psychological disorder: Fath er Status:Active Family history of migraine h eadaches: Mother(V17.2, Z82.0) Status:Active HTN (hypertension), benign: Mother Status:Active Family history of diabetes m ellitus: Mother(V18.0, Z83.3) Status:Active Unknown Family Member Name Dates Details Family history of hypertensi on: Father(V17.49, Z82.49) Status:Active Psychological disorder: Fath er Status:Active Family history of migraine h eadaches: Mother(V17.2, Z82.0) Status:Active HTN (hypertension), benign: Mother Status:Active Family history of diabetes m elldilia: Mother(V18.0, Z83.3) Status:Active Advance Directives No Advanced Directives Records FoundNo Advanced Directives Records FoundNo Advanced Directives Records FoundNo Advanced Directives Records FoundNo Advanced Directives Records FoundNo Advanced Directives Records FoundNo Advanced Directives Records Found Chief Complaint PT IS HERE TODAY FOR HER ANNUAL EXAM. LAST PAP WAS 03/26/18, NIL. STATES OVER THE SUMMER WAS HAVING PELVIC PAIN AFTER EXERCISING AND AFTER INTERCOURSE SHE WOULD HAVE A LOT OF PAIN, BURNING FEELING THAT WOULD LAST 5-10 MIN. HAPPENS ON AND OFF. 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 LMP: 05/16/2021NP, CHECK UPDEP /ANX1 MO F/U Additional Source Comments INFORMATION SOURCE (unrecogn ized section and content) DATE CREATED AUTHOR 04/03/2018 [facility] DATE CREATED AUTHOR AUTHOR'S ORGANIZ ATION 04/05/2018 [facility] DATE CREATED AUTHOR AUTHOR'S ORGANIZ ATION 11/10/2021 [facility] DATE CREATED AUTHOR AUTHOR'S ORGANIZ ATION 01/30/2022 [facility] DATE CREATED AUTHOR AUTHOR'S ORGANIZ ATION 01/30/2022 [employer] DATE CREATED AUTHOR AUTHOR'S ORGANIZ ATION 07/13/2024 [facility] DATE CREATED AUTHOR AUTHOR'S ORGANIZ ATION 07/16/2024 [facility] latory <item><item> Privacy Markings (unrecogniz ed section and content) Section Author: Ivy Marinelli PROHIBITION ON REDISCLOSURE OF CONFIDENTIAL INFORMATION This notice accompanies a disclosure of information concerning a client made to you with the consent of such client. Section Author: Ivy Marinelli PROHIBITION ON REDISCLOSURE OF CONFIDENTIAL INFORMATION This notice accompanies a disclosure of information concerning a client made to you with the consent of such client. Reason for Visit (unrecogniz ed section and content) Reason Comments Establish Care New patient annual w /pap. Last pap 06-13-2021 NILM. Has irregular periods for the last 5 years. Trying to conceive for the last 8 months, has a varicocele, has been seeing a doctor and has to complete semen analysis. Care Teams (unrecognized sec tion and content) Computer Programmer Chief Relationship Specialty Start Date End Date Aure Gordon MD [address] [place] [id number] PCP - General Family Medicine 07/11/24 Computer Programmer Chief Relationship Specialty Start Date End Date Aure Gordon MD [address] [place] [id number] PCP - General Family Medicine 07/11/24 FOR RECORDS PERTAINING TO PATIENTS WHO ARE OR HAVE BEEN ENROLLED IN A CHEMICAL DEPENDENCY/SUBSTANCEABUSE PROGRAM, SOME INFORMATION MAY BE OMITTED. This clinical summary was aggregated from multiple sources. Caution should be exercised in using it in the provision of clinical care. This summary normalizes information from multiple sources, and as a consequence, information in this document may materially change the coding, format and clinical context of patient data. In addition, data may be omitted in some cases. CLINICAL DECISIONS SHOULD BE BASED ON THE PRIMARY CLINICAL RECORDS. [email or web address] provides no warranty or guarantee of the accuracy or completeness of information in this document.
== END | disposition home or self-care (01) ==
LOC: US 16:28
PROVIDERS: PCP Family Medicine; Referring Provider Nurse Practitioner Family; Visit Provider Nurse Practitioner Family
DX: N93.0 Postcoital and contact bleeding (principal); Z31.69 Encounter for other general counseling and advice on procreation
CPT/HCPCS: 76830; 76856

== ENCOUNTER → 2025-04-11 | Outpatient (CLI) | payer OTHER, SELFPAY ==
--- OUTSIDE RECORDS SUMMARY | 2025-04-11 08:48 | XMS RPT_ITS | CCD ---
Author Organization [facility] Care Team Providers Care Mechanical Integrity Specialist Name Role Phone James, Shaista Unavailable Unavailable [...] oral solution (2 sources) alpha-Adrenergic Agonist, Uncompetitive W-bkulnc-V-aspartat e Receptor Antagonist, Sigma-1 Agonist Start: 03-17-2019 [...] Diagnostics Comment on above: Performed By: #### [id number] #### [facility] of [address], [address] [place] [address] Principal Programmer: Andrea Armando MD GARDNERELLA: Not detected Normal NOT DETECTED [facility] Comment on above: Performed By: #### [id number] #### [facility] [address], [address] [place] [address] Principal Programmer: Andrea Armando MD TRICHOMONAS: Not detected Normal NOT DETECTED [facility] Comment on above: Performed By: #### [id number] #### [facility] [address], [address] [place] [address] Principal Programmer: Andrea Armando MD Vaginitis DNA Probeson 07-12 Lory sp rRNA Probe Ql (Vag fld) Not detected NOT DETECTED [facility] G. vaginalis rRNA Probe Ql (Genital specimen) Not detected NOT DETECTED [facility] T. vaginalis rRNA Probe Ql (Genital specimen) Not detected NOT DETECTED [facility] THINPREP PAP SMEARon 025 THINPREP PAP SMEAR Gynecologic Cytology Report Case: [id number] Authorizing Provider: Irma Stafford, Collected: 07/11/2024 11:10 AM Ordering Location: [facility] Received: 07/14/2024 08:27 AM Obstetrics [...] on ThinPrep tests. Following automated imaging selected wadr from every slide are reviewed by a mixer helper. Specimen processing and Primary Screening performed at: [facility] - [address] [place] [id number] 06/21/2024 Normal [facility] Comment on above: Performed By: #### [id number] #### [facility] [address] [place] [address] Salvador Mtz M.D. [id number] VAGINITIS DNA PROBESon 07-11 VAGINITIS DNA PROBES EXT ONEL - TRICHOMONAS: NOT DETECTED EXT ONEL - GARDNERELLA: NOT DETECTED EXT ONEL - LORY: NOT DETECTED Normal NOT DETECTED [facility] Comment on above: Order Comment: [id number] Office Visit (Primary Care T xt/Forms)on 01-30-2022 [...] (V76.2) (Z01.419) Surgical History Problems History of [place] tooth extraction Family History Mother Family history [...] Contact information given for [facility] Keep appointment with Dr. Gordon next month [...] this AM w/ dry heaves, poor appetite. [place] feverish yest. When cked temp. 98.9. LMP: [...] (V76.2) (Z01.419) Surgical History Problems History of [place] tooth extraction Family History Mother Family history [...] Known Drug Allergies Vitals Vital Signs Recorded: [id number] 01:27PM Heart Rate: 91 Systolic: 122 Diastolic: [...] significant murmur. Signatures Electronically signed by : CECLIY Treviño; Jan 20 2022 1:57PM EST (Author) Normal [facility] Tobacco Screening.on 022 Fall risk assessment a) No falls within the last year [facility] Work Phone: Tobacco use status CPHS b) No [employer] [facility] Work Phone: Office Visit (Primary Care [...] (V76.2) (Z01.419) Surgical History Problems History of [place] tooth extraction Family History Mother Family history [...] Known Drug Allergies Vitals Vital Signs Recorded: [id number] 04:23PM Heart Rate: 97 Systolic: 110 Diastolic: [...] Dec 29 2021 5:13PM EST (Author) Normal [employer] COMPREHENSIVE PANELon 2021 Albumin [Mass/Vol] 4.4 g/dL Normal 3.4 - 5.0 [facility] Comment on above: Performed By: #### CMP #### [address] [address] ALP [Catalytic activity/Vol] 59 U/L Normal 33 - 110 [facility] Comment on above: Performed By: #### CMP #### [address] [address] ALT [Catalytic activity/Vol] 10 U/L Normal 7 - 45 [facility] Comment on above: Result Comment: Patients treated with Mulligan lfasalazine may generate falsely decreased results for ALT. Performed By: #### C MP #### [address] [address] Anion gap [Moles/Vol] 11 mmol/L Normal 10 - 20 [facility] Comment on above: Performed By: #### CMP #### [address] [address] AST [Catalytic activity/Vol] 15 U/L Normal 9 - 39 [facility] Comment on above: Performed By: #### CMP #### [address] [address] Bilirubin [Mass/Vol] 0.4 mg/dL Normal 0.0 - 1.2 [facility] Comment on above: Performed By: #### CMP #### [address] [address] Calcium [Mass/Vol] 9.4 mg/dL Normal 8.6 - 10.3 [facility] Comment on above: Performed By: #### CMP #### [address] [address] Chloride [Moles/Vol] 108 mmol/L High 98 - 107 [facility] Comment on above: Performed By: #### CMP #### [address] [address] Creatinine [Mass/Vol] 0.82 mg/dL Normal 0.50 - 1.05 [facility] Comment on above: Performed By: #### CMP #### [address] [address] eGFR FEMALE >90 Normal >90 [facility] Comment on above: Result Comment: CALCULATIONS OF ESTIMATE D GFR ARE PERFORMED USING THE 2020 CKD-EPI STUDY REFIT EQUATION WITHOUT THE RACE VARIABLE FOR THE IDMS-TRACEABLE CREATININE METHODS. https://jasn.asnjournals.org/content//ASN.9350138669 Performed By: #### C MP #### [address] [address] Glucose [Mass/Vol] 88 mg/dL Normal 74 - 99 [facility] Comment on above: Performed By: #### CMP #### [address] [address] HCO3 (Bld) [Moles/Vol] 26 mmol/L Normal 21 - 32 [facility] Comment on above: Performed By: #### CMP #### [address] [address] Potassium [Moles/Vol] 4.5 mmol/L Normal 3.5 - 5.3 [facility] Comment on above: Performed By: #### CMP #### [address] [address] Protein [Mass/Vol] 7.1 g/dL Normal 6.4 - 8.2 [facility] Comment on above: Performed By: #### CMP #### [address] [address] Sodium [Moles/Vol] 140 mmol/L Normal 136 - 145 [facility] Comment on above: Performed By: #### CMP #### [address] [address] Urea nitrogen [Mass/Vol] 15 mg/dL Normal 6 - 23 [facility] Comment on above: Performed By: #### CMP #### [address] [address] LIPID PANEL (CORONARY RISK 2 )on 12-14-2021 Cholesterol [Mass/Vol] 180 mg/dL Normal 0 - 199 [facility] Comment on above: Result Comment: . AGE [...] dosing. Performed By: #### L IPID #### [address] [address] Cholesterol in HDL [Mass/Vol] 60.0 mg/dL Normal [facility] Comment on above: Result Comment: . AGE VERY LOW LOW NORMAL HIGH 0-19 Y < 35 < 40 40-45 ---- 20-24 Y ---- < 40 >45 ---- >24 Y ---- < 40 40-60 >60 . Performed By: #### L IPID #### [address] [address] Cholesterol in LDL [Mass/Vol] 104 mg/dL High 0 - 99 [facility] Comment on above: Result Comment: . NEAR BORD AGE DESIRABLE OPTIMAL HIGH HIGH VERY HIGH 0-19 Y 0 - 109 --- 110-129 >/= 130 ---- 20-24 Y 0 - 119 --- 120-159 >/= 160 ---- >24 Y 0 - 99 100-129 130-159 160-189 >/=190 . Performed By: #### L IPID #### [address] [address] Cholesterol in VLDL [Mass/Vol] 16 mg/dL Normal 0 - 40 [facility] Comment on above: Performed By: #### LIPID #### [address] [address] Cholesterol.tota l/Cholesterol in HDL [Mass ratio] 3.0 {ratio} Normal [facility] Comment on above: Result Comment: REF VALUES DESIRABLE < 3.4 HIGH RISK > 5.0 Performed By: #### L IPID #### [address] [address] Triglyceride [Mass/Vol] 78 mg/dL Normal 0 - 149 [facility] Comment on above: Result Comment: . AGE [...] dosing. Performed By: #### L IPID #### [address] [address] Laboratory - Chemistry and C hemistry - challengeon 12-14-2021 Albumin BCP dye [Mass/Vol] 4.4 g/dL 3.4 - 5.0 [facility] [facility] Work Phone: ALP [Catalytic activity/Vol] 59 U/L 33 - 110 [facility] Work Phone: ALT With P-5'-P [Catalytic activity/Vol] 10 U/L 7 - 45 [facility] Work Phone: Comment on above: Patients treated with Sulfasalazine may generate falsely decreased results for ALT. Anion gap [Moles/Vol] 11 mmol/L 10 - 20 [facility] Work Phone: AST With P-5'-P [Catalytic activity/Vol] 15 U/L 9 - 39 [facility] Work Phone: Bilirubin [Mass/Vol] 0.4 mg/dL 0.0 - 1.2 [facility] Work Phone: Calcium [Mass/Vol] 9.4 mg/dL 8.6 - 10.3 [facility] Work Phone: Chloride [Moles/Vol] 108 mmol/L above high threshold 98 - 107 [facility] Work Phone: CO2 [Moles/Vol] 26 mmol/L 21 - 32 [facility] Work Phone: Creatinine [Mass/Vol] 0.82 mg/dL See Below [facility] Work Phone: Comment on above: Reference Range: 0.50 - 1.05 Glucose [Mass/Vol] 88 mg/dL 74 - 99 [facility] Work Phone: Potassium [Moles/Vol] 4.5 mmol/L 3.5 - 5.3 [facility] Work Phone: Protein [Mass/Vol] 7.1 g/dL 6.4 - 8.2 [facility] Work Phone: Sodium [Moles/Vol] 140 mmol/L 136 - 145 [facility] Work Phone: Urea nitrogen [Mass/Vol] 15 mg/dL 6 - 23 [facility] Work Phone: Lipid Panelon 12-14-2021 Cholesterol [Mass/Vol] 180 mg/dL 0 - 199 [facility] Work Phone: Comment on above: . [...] dosing. Cholesterol in HDL [Mass/Vol] 60.0 mg/dL [employer] [facility] Work Phone: Comment on above: . AGE VERY LOW LOW NORMAL HIGH 0-19 Y < 35 < 40 40-45 ---- 20-24 Y ---- < 40 >45 ---- >24 Y ---- < 40 40-60 >60. Cholesterol in LDL [Mass/Vol] 104 mg/dL above high threshold 0 - 99 [employer] [facility] Work Phone: Comment on above: . NEAR BORD AGE DESIRABLE OPTIMAL HIGH H IGH VERY HIGH 0-19 Y 0 - 109 --- 110-129 >/= 130 ---- 20-24 Y 0 - 119 --- 120-159 >/= 160 ---- >24 Y 0 - 99 100-129 130-159 160-189 >/=190. Cholesterol.tota l/Cholesterol in HDL [Mass ratio] 3.0 {ratio} [employer] [facility] Work Phone: Comment on above: REF VALUESDESIRABLE < 3.4HIGH RISK > 5.0 Triglyceride [Mass/Vol] 78 mg/dL 0 - 149 [employer] [facility] Work Phone: Comment on above: . [...] 16 mg/dL 0 - 40 [facility] Work Phone: No Panel Informationon 12-14 >90 >90 [facility] [facility] Work Phone: Comment on above: CALCULATIONS OF ESTIMATED GFR ARE PERFOR MED USING THE 2020 CKD-EPI STUDY REFIT EQUATION WITHOUT THE RACE VARIABLE FOR THE IDMS-TRACEABLE CREATININE METHODS.https://jasn.asnjournals.org/content///ASN.326 3599466 Office Visit (Primary Care T xt/Forms)on 12-14-2021 Follow-up visit Diagnoses/Problems Assessed Family history of HTN (hypertension), benign : Mother Family history of diabetes mellitus (V18.0) (Z83.3) : Mother Wellness examination (V70.0) (Z00.00) Screening for diabetes mellitus (V77.1) (Z13.1) Screening for lipid disorders (V77.91) (Z13.220) Orders Screening for diabetes mellitus Comprehensive Metabolic Panel; Status:Active; Requested for:[id number]; Screening for lipid disorders Lipid Panel; Status:Active; Requested for:[id number]; SocHx: Non-smoker Tobacco Use Screening; Status:Complete; Done: 13Snh1667 Patient Discussion/Summary Follow-up as needed, get blood testing done today Provider Impressions Provider Impressions Free Text Note Form: Patient arrives to the office today to establish as a new patient to our practice. 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 Check blood testing to check sugar and lipids, advised about healthy lifestyles, follow-up as needed. 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 History of Present Illness Pap in May with Stacey, not on OCP, does not like how [...] (V76.2) (Z01.419) Surgical History Problems History of [place] tooth extraction Family History Mother Family history [...] Known Drug Allergies Vitals Vital Signs Recorded: 98Iss8174 08:43AM Heart Rate: 91 Systolic: 100 Diastolic: [...] Dec 14 2021 9:03AM EST (Author) Normal Trig[facility] Tobacco Screening.on Adult depression screening assessment Yes [employer] [facility] Work Phone: Adult depression screening assessment No [employer] [facility] Work Phone: Fall risk assessment a) No falls within the last year [employer] [facility] Work Phone: Tobacco use status CPHS b) No [employer] [facility] Work Phone: Provider Note - ED v3on 10-21 Provider Note - ED v3 Provider Note: Chart Review: ED NOTES ED NOTES: HPI: Patient was using a mandolin cutting some [place] sprouts when she created a small skin [...] made to minimize errors. Minor errors in mixer helper may be present. HISTORY OF PRESENTING ILLNESS [...] patient: no Electronic Signatures: Will Sarabia I (COPY CUTTER-[employer]) (Signed 03-Nov-2021 22:12) Authored: ED Notes, HPI, PMH, PE, MDM/ED Course, Clinical Impression, Attestation, Chart Review, Scores Last Updated: 03-Nov-2021 22:12 by Will Sarabia I (COPY CUTTER-CHEMICAL BLENDER) References: 1. Data Referenced From Triage - ED 03-Nov-2021 20:03 Normal [facility] Risk Screen - Adult Emergenc yon 11-03-2021 Risk Screen - Adult Emergency Preferred Language: Preferred Language: Preferred Language for Discussing Health Care (patient/designee)Lao Advanced Directives: Advance Directive/DNRno Family Violence Adult: Abuse Screen: Are you or have you been threatened or abused physically, emotionally, or sexually by anyoneno Learning Assessment (Patient): Learning Assessment (Patient): Patient is Able to be Assessed for Learningyes Factors Influencing Readiness to Learnacuteness of illness Factors that Impact Ability to Learnnone Devices/Methods Used to Communicatenone Learning Preferencesaudio Cultural Considerationsnone Developmental Considerationsnone Anabaptist Considerationsnone Learning Assessment (Other Learner): Learning Assessment (Other Learner): Other learner availableno Pressure Injury/TB/Substance: Pressure Injury: Pressure Injury Present on Admissionno Do you have a coughno Smoking Statusnever smoker Alcohol Useoccasionally Drug Usedenies Drug 2 Usedenies Admission Risk Screen: Significant IndicatorsComplete CAGE: CAGE: Is this an injured patient at a Trauma Center ([facility]/Person/[place]): no Electronic Signatures: Maricarmen Stanford (RN) (Signed 03-Nov-2021 20:07) Authored: Preferred Language, Advanced Directives, Family Violence Adult, Learning Assessment (Patient), Learning Assessment (Other Learner), Pressure Injury/TB/Substance, Pressure Injury, CAGE Last Updated: 03-Nov-2021 20:07 by Maricarmen Stanford (RN) [facility] Triage - EDon 11-03-2021 Triage - ED [...] BMI (kg/m2): 27.303 Calculated BSA (m2) 1.93 Mine Coma Scale: Best Motor Response: (M6) obeys [...] Updated: 03-Nov-2021 20:06 by Maricarmen Stanford (HARJEET) [facility] LMPon 06-13-2021 Last menstrual period start date 16May2021 [employer] Work Phone: Tobacco use status CPHS b) No [employer] Work Phone: Laboratory - Cytologyon 05-25 Cytology report Cyto stain.thin prep Doc (Cvx/Vag) [employer] Phone: MARKETING AND DEVELOPMENT COORDINATOR - Office Visiton 05-25 MARKETING AND DEVELOPMENT COORDINATOR - Office Visit Diagnoses/Problems Assessed Screening for cervical cancer (V76.2) (Z12.4) Screening for breast cancer (V76.10) (Z12.39) Women's annual routine gynecological examination (V72.31) (Z01.419) Orders PAP CUSTOMER COMPLAINT SERVICE SUPERVISOR, Cytology; Status:In Progress - Specimen/Data Collected; Done: [...] BREAST CHECK. LMP: 05/16/2021 History of Present Qwjwzcz34-zyee-wkd G0 presents for annual exam. Patient safe [...] Medication No Known Drug Allergies Recorded By: Chelsea Juan; 05/12/2019 3:13:10 PM Current Meds Medication NameInstruction No Reported Medications Vitals Vital Signs Recorded: 13Jun2021 02:59PM Fjvkkgxs253 Xkovltmvn21 Height5 ft 8 in Taxtvf669 lb 8.96 oz BMI Kqqrvnjwzy98.45 kg/m2 BSA Calculated1.96 Tobacco Useb) No [id number] Physical Exam General: None acute distress Eye: [...] Jun 13 2021 4:11PM EST (Author) Normal [facility] CORONAVIRUS 2019 BY PCRon SARS-CoV-2 (COVID-19) RNA AUSTYN+probe Ql (Unsp spec) Not detected Normal Not Detected [facility] Comment on above: Result Comment: . This [...] patient management decisions. Fact sheet for providers: https://www.fda.gov/media/285368/download Fact sheet for patients: https://www.fda.gov/media/893830/download This test has received FDA Emergency Use Authorization (EUA) and has been verified by [facility] ([facility]). This test is only authorized for the duration of time that circumstances exist to justify the authorization of the emergency use of in vitro diagnostic tests for the detection of SARS-CoV-2 virus and/or diagnosis of COVID-19 infection under section 564(b)(1) of the Act, 21 U.S.C. 360bbb-3(b)(1), unless the authorization is terminated or revoked sooner. [facility] is certified under CLIA-88 as qualified to perform high complexity testing. Testing is performed in the [facility] laboratories located at [address] [place] [address]. Performed By: #### C OV19 #### [address] [place] [address] Covid 19 Resultson 1 SARS-CoV-2 (COVID-19) RNA [...] or Naproxen (Aleve) can also be used. Dtfv-jtx-jvngmbl cough and cold medicines can be used according to the instructions on the package. Some ctcj-ayz-dlgvgir medicines also contain acetaminophen. Make sure you [...] water are not available, use alcohol-based hand manager respiratory care. Avoid touching your eyes, nose, and mouth [...] 24 dagoberto (more content not included)... Normal [facility] CORONAVIRUS 2019 BY PCRon DATE OF SYMPTOM ONSET [YYYYMMDD]? [id number] [facility] Comment on above: Performed By: #### COV19 #### [facility] [address] [place] [address] Lab Specimen Source Nasal, Nasopharyngeal [facility] Comment on above: Performed By: #### COV19 #### [facility] [address] [place] [address] Provider Note - ED v2on 09 Provider [...] a day SIGNIFICANT EVENTS: No documented data. MARKETING AND DEVELOPMENT COORDINATOR: Is : no Is : no REVIEW OF SYSTEMS CONSTITUTIONAL: POSITIVE for: malaise ENMT Throat/Neck: POSITIVE for: throat pain NEUROLOGICAL: POSITIVE for: headache; All other systems reviewed and are negative RESULTS/VITAL SIGNS VITAL SIGNS: T PRBP SpO2O2(LPM) %FiO2 Method 29-Dec-2020 11:38:[id number]/82 98 PHYSICAL EXAM CONSTITUTIONAL: Well appearing, well [...] Electronic Signatures for Addendum Section: Lucille Jones (COPY CUTTER-CHEMICAL BLENDER) (Signed Addendum 30-Dec-2020 09:24) notified patient Electronic Signatures: Lucille Jones (COPY CUTTER-CHEMICAL BLENDER) (Signed 30-Dec-2020 09:24) Authored: ED Notes, HPI, PMH, ROS, PE, Results/Vital Signs, Clinical Impression, Attestation, Chart Review, Scores Last Updated: 30-Dec-2020 09:24 by Lucille Joens (COPY CUTTER-[employer]) [facility] IGP W/hpv Rfx [id number] 04-03 Diagnosis: See Ref Lab Report [facility] Comment on above: Order Comment: LMP: 09/2017 Performed By: #### 1 [id number] ####[facility] [employer] [address] [place] [address] Pathology ([facility])on 03-26-2018 Pathology ([facility]) FINAL GYNECOLOGIC CY TOLOGY [id number] ADEQUACYSatisfactory for Evaluation. Endocervical cells/transformation zone componentpresent.GENERAL CATEGORIZATIONNegative for Intraepithelial Lesion or MalignancyCOMMENTSample has been treated with glacial acetic acid for excessive blood, debris,inflammation and/or lubricant.CLINICAL HISTORYComment: LMP: 09/2017SPECIMEN(A) SCREENING CERVICAL/ENDOCERVICAL THIN PREP VIALPerformed at [facility], [address] [place], [place] [address]Screened by: Signed Out by: JOSEPH VALLECILLO Bottom Crane Operator Reported: 04/01/2018 Normal [facility] Comment on above: Performed By: #### CUSTOMER COMPLAINT SERVICE SUPERVISOR ####[facility] [address] [place] [address] Vital Signs Date Time Vital Sign Value Performing Clinician Terrell ding 07-11-2024 10:43-0400 Body height 172.7 cm Irma Stafford MD Work Phone: [facility] 07-11-2024 10:43-0400 Body mass index (BMI) [Ratio] 29.5 kg/m2 Irma Stafford MD Work Phone: [facility] 07-11-2024 10:43-0400 Body weight 88 kg Irma Stafford MD Work Phone: [facility] 07-11-2024 10:43-0400 Diastolic blood pressure 80 mm[Hg] Irma Stafford MD Work Phone: [facility] 07-11-2024 10:43-0400 Heart rate 93 /min Irma Stafford MD Work Phone: [facility] 07-11-2024 10:43-0400 Systolic blood pressure 121 mm[Hg] Irma Stafford MD Work Phone: [facility] 01-30-2022 15:51-0400 Body height 172.72 cm Arue Gordon Work Phone: [employer] Work Phone: 01-30-2022 15:51-0400 Body mass index (BMI) [Ratio] 26.17 kg/m2 Aure Gordon Work Phone: [employer] Work Phone: 01-30-2022 15:51-0400 Body surface area Derived from formula 1.92 m2 Aure Gordon Work Phone: [employer] Work Phone: 01-30-2022 15:51-0400 Body weight 78.08 kg Aure Gordon Work Phone: [employer] Work Phone: 01-30-2022 15:51-0400 Diastolic blood pressure 70 mm[Hg] Aure Gordon Work Phone: [facility] Work Phone: 01-30-2022 15:51-0400 Heart rate 88 /min Aure Gordon Work Phone: [employer] Work Phone: 01-30-2022 15:51-0400 SaO2% (BldA) [Mass fraction] 99 % Aure Gordon Work Phone: [facility] Work Phone: 01-30-2022 15:51-0400 Systolic blood pressure 110 mm[Hg] Aure Gordon Work Phone: [facility] Work Phone: 01-20-2022 13:27-0400 Body height 172.72 cm Aure Gordon Work Phone: [facility] Work Phone: 01-20-2022 13:27-0400 Body mass index (BMI) [Ratio] 27 kg/m2 Aure Gordon Work Phone: [facility] Work Phone: 01-20-2022 13:27-0400 Body surface area Derived from formula 1.94 m2 Aure Gordon Work Phone: [employer] Work Phone: 01-20-2022 13:27-0400 Body weight 80.54 kg Aure Gordon Work Phone: [employer] Work Phone: 01-20-2022 13:27-0400 Diastolic blood pressure 82 mm[Hg] Aure Gordon Work Phone: [employer] Work Phone: 01-20-2022 13:27-0400 Heart rate 91 /min Aure Gordon Work Phone: [facility] Work Phone: 01-20-2022 13:27-0400 SaO2% (BldA) [Mass fraction] 98 % Aure Gordon Work Phone: [facility] Work Phone: 01-20-2022 13:27-0400 Systolic blood pressure 122 mm[Hg] Aure Gordon Work Phone: [facility] Work Phone: 12-29-2021 16:23-0400 Body height 172.72 cm Aure Gordon Work Phone: [facility] [facility] Work Phone: 12-29-2021 16:23-0400 Body mass index (BMI) [Ratio] 27 kg/m2 Aure Gordon Work Phone: [facility] Work Phone: 12-29-2021 16:23-0400 Body surface area Derived from formula 1.94 m2 Aure Gordon Work Phone: [facility] Work Phone: 12-29-2021 16:23-0400 Body weight 80.54 kg Aure Gordon Work Phone: [facility] Work Phone: 12-29-2021 16:23-0400 Diastolic blood pressure 80 mm[Hg] Aure Gordon Work Phone: [facility] Work Phone: 12-29-2021 16:23-0400 Heart rate 97 /min Aure Gordon Work Phone: [facility] Work Phone: 12-29-2021 16:23-0400 SaO2% (BldA) [Mass fraction] 99 % Aure Gordon Work Phone: [facility] Work Phone: 12-29-2021 16:23-0400 Systolic blood pressure 110 mm[Hg] Aure Gordon Work Phone: [facility] Work Phone: 12-14-2021 08:43-0400 Body height 172.72 cm Aure Gordon Work Phone: [facility] Work Phone: 12-14-2021 08:43-0400 Body mass index (BMI) [Ratio] 27.84 kg/m2 Aure Gordon Work Phone: [employer] Work Phone: 12-14-2021 08:43-0400 Body surface area Derived from formula 1.97 m2 Aure Gordon Work Phone: [facility] Work Phone: 12-14-2021 08:43-0400 Body weight 83.07 kg Aure Gordon Work Phone: [facility] Work Phone: 12-14-2021 08:43-0400 Diastolic blood pressure 70 mm[Hg] Aure Gordon Work Phone: [facility] Work Phone: 12-14-2021 08:43-0400 Heart rate 91 /min Aure Gordon Work Phone: [facility] Work Phone: 12-14-2021 08:43-0400 SaO2% (BldA) [Mass fraction] 100 % Aure Gordon Work Phone: [facility] Work Phone: 12-14-2021 08:43-0400 Systolic blood pressure 100 mm[Hg] Aure Gordon Work Phone: [facility] Work Phone: 11-03-2021 22:03-0400 Body height 170.1 cm Aure Gordon Other Phone: [facility] 11-03-2021 22:03-0400 Body temperature 98.78 [degF] Aure Gordon Other Phone: [facility] 11-03-2021 22:03-0400 Body weight 79 kg Aure Gordon Other Phone: [facility] 11-03-2021 22:03-0400 Diastolic blood pressure 95 mm[Hg] Aure Colesd Other Phone: [facility] 11-03-2021 22:03-0400 Heart rate 88 /min Aure Gordon Other Phone: [facility] 11-03-2021 22:03-0400 Respiratory rate 16 /min Aure Gordon Other Phone: [facility] 11-03-2021 22:03-0400 SaO2% (BldA) [Mass fraction] 98 % Aure Gordon Other Phone: [facility] 11-03-2021 22:03-0400 Systolic blood pressure 159 mm[Hg] Aure Gordon Other Phone: [facility] 06-13-2021 14:59-0500 Body height 172.72 cm Aure Sydnee Colesd Work Phone: [facility] [employer] Work Phone: 06-13-2021 14:59-0500 Body mass index (BMI) [Ratio] 27.45 kg/m2 Davider Sydnee Gordon Work Phone: [facility] [employer] Work Phone: 06-13-2021 14:59-0500 Body surface area Derived from formula 1.96 m2 Aure Colesd Work Phone: [employer] Phone: 06-13-2021 14:59-0500 Body weight 81.9 kg Christalecer D Gordon Work Phone: [employer] Work Phone: 06-13-2021 14:59-0500 Diastolic blood pressure 80 mm[Hg] Christopher D Gordon Work Phone: [employer] Work Phone: 06-13-2021 14:59-0500 Systolic blood pressure 114 mm[Hg] Christopher D Gordon Work Phone: [employer] Work Phone: 12-29-2020 13:38-0400 Body height 170.1 cm Brandonophlisa Colesd Other Phone: [facility] 12-29-2020 13:38-0400 Body temperature 97.88 [degF] Brandonopher Gordon Other Phone: [facility] 12-29-2020 13:38-0400 Diastolic blood pressure 82 mm[Hg] Christopher Gordon Other Phone: [facility] 12-29-2020 13:38-0400 Heart rate 83 /min Christopher Gordon Other Phone: [facility] 12-29-2020 13:38-0400 Respiratory rate 16 /min Christopher Gordon Other Phone: [facility] 12-29-2020 13:38-0400 SaO2% (BldA) [Mass fraction] 98 % Christopher Gordon Other Phone: [facility] 12-29-2020 13:38-0400 Systolic blood pressure 127 mm[Hg] Christopher Gordon Other Phone: [facility] Encounters Encounter Date Encounter Type Care Provider Facility Start: 07-20-2024 End: 09-19-2024 Follow-up encounter Irma Stafford MD Work Phone: [facility]ne[facility] Comment on above: Thinprep Pap Smear, Vaginitis DNA Probes Start: 07-11-2024 End: 07-11-2024 ambulatory IRMA STAFFORD [facility] Start: 07-11-2024 End: 07-11-2024 Encounter for gynecological examination (general) (routine) without abnormal findings IRMA STAFFORD [facility] Start: 07-11-2024 End: 07-11-2024 Initial preventive medicine new pt age 18-39yrs Irma Stafford MD Work Phone: [facility] Obstetric[facility] and Gynecology Comment on above: Well woman exam with routine gynecological exam (Primary Dx); Abnormal uterine bleeding (AUB); Friable cervix Start: 07-11-2024 End: 07-11-2024 Patient encounter procedure Irma Stafford MD Work Phone: [facility] Start: 01-30-2022 Office outpatient vi sit 15 minutes Aure Gordon Work Phone: [facility] Work Phone: Start: 01-30-2022 ambulatory Aure Gordon Facility:[id number] Start: 01-20-2022 Office outpatient vi sit 15 minutes Aure Gordon Work Phone: [facility] Work Phone: Start: 01-20-2022 ambulatory Aure Gordon Facility:[id number] Start: 01-03-2022 AUDIT Aure Gordon Work Phone: [facility] Work Phone: Start: 12-29-2021 Office outpatient vi sit 15 minutes Aure Gordon Work Phone: [facility] Work Phone: Start: 12-29-2021 ambulatory Aure Gordon Facility:[id number] Start: 12-14-2021 Initial preventive medicine new pt age 18-39yrs Brandonniko Sydnee Gordon Work Phone: [facility] Work Phone: Start: 12-14-2021 ambulatory Brandonniko Gordon Facility:[id number] Start: 11-03-2021 End: 11-03-2021 Emergency department patient visit Will Sarabia [facility] Emergency 12 Start: 06-21-2021 Chart Update Brandonniko Sydnee Gordon Work Phone: [employer] Work Phone: Start: 06-13-2021 Periodic preventive med est patient 18-39 yrs Aure Gordon Work Phone: [employer] Work Phone: Start: 06-13-2021 ambulatory Aure Gordon Facility:[facility] Start: 12-29-2020 End: 12-29-2020 Emergency department patient visit Lucille Jones [facility] 03 Start: 03-26-2018 End: 03-27-2018 Patient encounter procedure Shaista James Facility:[facility] Start: 03-26-2018 End: 03-27-2018 Patient encounter procedure Shaista James Facility:[facility] Encounter for gynecological examination (general) (routine) without abnormal findings Aure Castro Gordon Work Phone: [employer] Work Phone: Comment on above: 03/26/2018; NIL; Menarche Aure coyne Work Phone: [employer] Work Phone: Comment on above: AGE 13; Patient encounter procedure Aure Castro Gordon Work Phone: [employer] Work Phone: Patient encounter status Valente rajni Castro Gordon Work Phone: [facility] Work Phone: Procedures Date Procedure Procedure [...] Start: 11-04-2031 Tetanus vaccination Tetanus: Every 10yrs [facility] Start: 07-12-2027 Screening for malignant neoplasm of cervix [facility] Start: 07-11-2025 History and physical examination, annual for health maintenance Wellness Visit [facility] Start: 12-22-2024 Influenza vaccination Influenza Vaccine (Season Ended) [facility] Start: 2024 Screening for malignant neoplasm of cervix HPV/Cotest [facility] Start: 08-18-2024 End: 08-18-2024 Patient encounter procedure 08/18/2024 11:15 AM EDT Office Visit [facility] Ob[facility]etrics and Gynecology [address] [phone] Irma Stafford MD [address] [address] [facility] Start: 08-18-2024 End: 08-18-2024 Professional / ancillary services management 08/18/2024 10:30 AM EDT Ancillary Procedure [facility] [address] [phone] Irma Stafford MD [address] [address] [facility] Start: 12-23-2023 COVID-19 Vaccine ( season) COVID-19 Vaccine ( season) [facility] Start: 12-23-2023 Influenza vaccination Influenza Vaccine (#1) [facility] Start: 01-30-2022 EPV, Provider: Aure Gordon, Status: Pen, Time: 3:40 PM EPV, Provider: Aure Gordon, Status: Pen, Time: 3:40 PM [facility] Work Phone: Start: 06-13-2021 Patient encounter procedure SEPIDEH Perrin Start: 08-24-2015 Screening for malignant neoplasm of cervix Pap Smear [facility] Start: 2012 Hepatitis C screening Hepatitis C Screening [facility] Start: 2009 HIV screening HIV Screening [facility] Start: 2006 Depression screening using PHQ-9 (Patient Health Questionnaire 9) score Depression Screening/Follow-Up (PHQ-2/9) [facility] End: 07-11-2025 Dihydrotestosterone Dihydrotestosterone Lab Routine Abnormal uterine bleeding (AUB) 1 Occurrences starting 07/11/2024 until 07/11/2025 [facility] Comment on above: 1 Occurrences starting 07/11/2024 until 07/11/2025 End: 07-11-2025 Hemoglobin A1c/Hemoglobin.total in Blood Hemoglobin A1c Lab Routine Well woman exam with routine gynecological exam 1 Occurrences starting 07/11/2024 until 07/11/2025 [facility] Comment on above: 1 Occurrences starting 07/11/2024 until 07/11/2025 End: 07-11-2025 Lipid 1996 panel - Serum or Plasma Lipid Panel Lab Routine Well woman exam with routine gynecological exam 1 Occurrences starting 07/11/2024 until 07/11/2025 [facility] Comment on above: 1 Occurrences starting 07/11/2024 until 07/11/2025 Microscopic examinat ion of vaginal Papanicolaou smear Thinprep Pap Smear Pathology and Cytology Routine Well woman exam with routine gynecological exam Ordered: 07/11/2024 [facility] Work Phone: Comment on above: Ordered: 07/11/2024 End: 07-11-2025 Plasma dehydroepiandrosterone sulfate level DHEA-Sulfate Lab Routine Abnormal uterine bleeding (AUB) 1 Occurrences starting 07/11/2024 until 07/11/2025 [facility] Comment on above: 1 Occurrences starting 07/11/2024 until 07/11/2025 End: 07-11-2025 Prolactin [Mass/volume] in Serum or Plasma Prolactin Lab Routine Abnormal uterine bleeding (AUB) 1 Occurrences starting 07/11/2024 until 07/11/2025 [facility] Comment on above: 1 Occurrences starting 07/11/2024 until 07/11/2025 End: 07-11-2025 Testosterone Free [Mass/volume] in Serum or Plasma Testosterone, Total and Free (Calculated) Lab Routine Abnormal uterine bleeding (AUB) 1 Occurrences starting 07/11/2024 until 07/11/2025 [facility] Comment on above: 1 Occurrences starting 07/11/2024 until 07/11/2025 End: 07-11-2025 Thyrotropin [Units/volume] in Serum or Plasma TSH Lab Routine Abnormal uterine bleeding (AUB) 1 Occurrences starting 07/11/2024 until 07/11/2025 [facility] Comment on above: 1 Occurrences starting 07/11/2024 until 07/11/2025 End: 07-11-2025 US Pelvis transvaginal US Transvaginal Imaging Routine Abnormal uterine bleeding (AUB) 1 Occurrences starting 07/11/2024 until 07/11/2025 [facility] Comment on above: 1 Occurrences starting 07/11/2024 until 07/11/2025 Immunizations Immunization Date Immunization Notes Care Provider Tristian ford 11-03-2021 tetanus toxoid, redu jesica diphtheria toxoid, and acellular pertussis vaccine, adsorbed Aure Gordon Other Phone: [facility] 03-15-2021 Pfizer-BioNTech COVID-19 Vacc 30 MCG/0.3ML Intramuscular Suspension Aure Gordon Work Phone: [facility] Work Phone: 07-02-2020 Pfizer-BioNTech COVID-19 Vacc 30 MCG/0.3ML Intramuscular Suspension Aure Gordon Work Phone: [facility] Work Phone: 06-11-2020 Pfizer-BioNTech COVID-19 Vacc 30 MCG/0.3ML Intramuscular Suspension Aure Gordon Work Phone: [facility] Work Phone: 01-16-2020 influenza, injectabl e, quadrivalent, preservative free Aure Gordon Work Phone: [facility] Work Phone: 01-16-2020 influenza virus vaccine, unspecified formulation Irma Stafford MD Work Phone: [facility] 11-18-2019 tuberculin skin test ; purified protein derivative solution, intradermal Aure Gordon Work Phone: [facility] Work Phone: 05-03-2016 tuberculin skin test ; purified protein derivative solution, intradermal Irma Stafford MD Work Phone: [facility] 07-22-2012 human papilloma viru s vaccine, quadrivalent Irma Stafford MD Work Phone: [facility] 12-18-2011 hepatitis A vaccine, pediatric/adolescent dosage, 2 dose schedule Irma Stafford MD Work Phone: [facility] 12-18-2011 human papilloma viru s vaccine, quadrivalent Irma Stafford MD Work Phone: [facility] 12-23-2009 human papilloma viru s vaccine, quadrivalent Irma Stafford MD Work Phone: [facility] 12-23-2009 meningococcal polysaccharide (groups A, C, Y and W-135) diphtheria toxoid conjugate vaccine (MCV4P) Irma Stafford MD Work Phone: [facility] 12-23-2009 varicella virus vaccine Valentin Stafford MD Work Phone: [facility] 12-14-2005 tetanus toxoid, redu jesica diphtheria toxoid, and acellular pertussis vaccine, adsorbed Irma Stafford MD Work Phone: [facility] 04-02-2003 influenza virus vaccine, unspecified formulation Irma Stafford MD Work Phone: [facility] 03-15-1999 diphtheria, tetanus toxoids and acellular pertussis vaccine Irma Stafford MD Work Phone: [facility] 03-15-1999 measles, mumps and rubella virus vaccine Irma Stafford MD Work Phone: [facility] 03-15-1999 poliovirus vaccine, inactivated Irma Stafford MD Work Phone: [facility] 02-29-1996 diphtheria, tetanus toxoids and acellular pertussis vaccine Irma Stafford MD Work Phone: [facility] 12-09-1995 haemophilus influenz ae type b vaccine, PRP-T conjugate Irma Stafford MD Work Phone: [facility] 11-29-1995 measles, mumps and rubella virus vaccine Irma Stafford MD Work Phone: [facility] 1995 varicella virus vaccine Valentin Stafford MD Work Phone: [facility] 04-25-1995 diphtheria, tetanus toxoids and acellular pertussis vaccine Irma Stafford MD Work Phone: [facility] 04-25-1995 haemophilus influenz ae type b vaccine, PRP-T conjugate Irma Stafford MD Work Phone: [facility] 04-25-1995 hepatitis B vaccine, pediatric or pediatric/adolescent dosage Irma Stafford MD Work Phone: [facility] 04-25-1995 poliovirus vaccine, inactivated Irma Stafford MD Work Phone: [facility] 02-05-1995 diphtheria, tetanus toxoids and acellular pertussis vaccine Irma Stafford MD Work Phone: [facility] 02-05-1995 haemophilus influenz ae type b vaccine, PRP-T conjugate Irma Stafford MD Work Phone: [facility] 02-05-1995 poliovirus vaccine, inactivated Irma Stafford MD Work Phone: [facility] 1994 diphtheria, tetanus toxoids and acellular pertussis vaccine Irma Stafford MD Work Phone: [facility] 1994 haemophilus influenz ae type b vaccine, PRP-T conjugate Irma Stafford MD Work Phone: [facility] 1994 hepatitis B vaccine, pediatric or pediatric/adolescent dosage Irma Stafford MD Work Phone: [facility] 1994 poliovirus vaccine, inactivated Irma Stafford MD Work Phone: [facility] 1994 hepatitis B vaccine, pediatric or pediatric/adolescent dosage Irma Stafford MD Work Phone: [facility] Payers Date Payer Category Payer Managed Care (privat e) or private health insurance (indemnity), not otherwise specified [employer] [id number] 2022 Private Health Insurance [id number] 1994 Unknown [id number] 1994 Unknown [id number] 1994 Unknown [id number] 1994 Unknown [id number] 1994 Unknown [id number] 1994 Unknown [id number] 1994 Unknown [id number] Unknown Unknown [id number] Social History Date Type Detail Facility Assertion Unknown if ever smoked [place] [address] [employer] Work Phone: Tobacco smoking consumption unknown [facility] Start: 07-11-2024 Occasional alcohol use Occasional alcohol use [place] [address] [employer] Work Phone: Comment on above: 1 drink a week; Start: 07-11-2024 Tobacco smoking status NHIS Never smoked tobacco [facility] Start: 07-11-2024 Tobacco use and exposure Smokeless tobacco non-user [facility] Start: 07-11-2024 Tobacco use panel [facility] Start: 1995 Sex assigned at Not on file [facility] NEGATED: Highlighted rowStart: NINF History of tobacco use Passive smoker [facility] Functional Status Date Assessment Result Facility NEGATED: Highlighted row Functional performance Functional status health issues are not documented Disease [place] [address] [employer] Work Phone: Mental Status Date Assessment Result Facility NEGATED: Highlighted row Cognitive function [Interpretation] Cognitive status health issues are not documented Disease [place] [address] [employer] Work Phone: Progress note 07-11-2024 Note Date & Type Note Facility 07-11-2024 Note [facility] woman visit Subjective Monica Silveira is a [...] pap Irma Stafford MD Obstetrics and Gynecology [facility] [address] [place] [address] Irma Stafford MD [1] No Known Allergies AUTHENTICATED BY IRMA STAFFORD, ON 07/13/2024 19:47:39 [facility] History of Present illness Narrative 07-11-2024 [...] pap Irma Stafford MD Obstetrics and Gynecology [facility] [address] [place] [address] Irma Stafford MD [1] No Known Allergies documented in this encounter [facility] History of Present illness Narrative 01-01-2022 Note Date & Type Note Facility 01-01-2022 History of Present illness Narrative SSRI made feel more anxious and nervous, nauseated, feeling better off of medicinesemotionally doing OK nownausea and insomnia betterchanged jobs in the past monthno ETOH usegoing to try counseling [facility] Work Phone: Clinical Note 06-13-2021 Note Date & Type Note Facility 06-13-2021 Note 6 Date of Procedure: 06/13/2021 Pathologist: [facility], Cytology Date Reported: 06/20/2021 Date Received: [...] This specimen has been analyzed by the [employer] Imaging System ([employer] an automated imaging and review system, which assists the laboratory in evaluating cells on ThinPrep Pap tests. Following automated imaging, selected ward from every slide were reviewed by a mixer helper and/or pathologist. Electronically Signed Out By [facility], Cytology//IK By the signature on this [...] Source of Specimen A: THINPREP PAP CERVICAL [facility] Department of Pathology [address] [place] [address] Comment on above: Performed By: #### C #### [facility] Cytology [address] [place], [place] [id number] History of Present illness Narrative 06-13-2020 Note [...] activity. Patient has no other acute concern [address] Work Phone: History of Present illness [...] hospitalized in the past for mood -[facility] [employer] [facility] Work Phone: Evaluation note Note Date & Type Note Facility Evaluation note Diagnosis Well woman exam with routine gynecological exam- Primary Routine gynecological examination Abnormal uterine bleeding (AUB) Friable cervix documented in this encounter [facility] History of Present illness Narrative Note Date & Type Note Facility History of Present illness Narrative Pap in May with [place], not on OCP, does not like how feels on OCPhas a spot on left shoulder, irritated at timesNo headache, chest pain, shortness of breath, dizziness, lightheadedness, or edemano GI issuesno joint aches and pains [facility] Work Phone: Summary Purpose Family History Unknown [...] section and content) DATE CREATED AUTHOR 04/03/2018 [facility] DATE CREATED AUTHOR AUTHOR'S ORGANIZ ATION 04/05/2018 [facility] DATE CREATED AUTHOR AUTHOR'S ORGANIZ ATION 11/10/2021 [facility] DATE CREATED AUTHOR AUTHOR'S ORGANIZ ATION 01/30/2022 [facility] DATE CREATED AUTHOR AUTHOR'S ORGANIZ ATION 01/30/2022 [employer] DATE CREATED AUTHOR AUTHOR'S ORGANIZ ATION 07/13/2024 [facility] DATE CREATED AUTHOR AUTHOR'S ORGANIZ ATION 07/16/2024 [facility]atory <item><item> Privacy Markings (unrecogniz ed [...] Care Teams (unrecognized sec tion and content) Mechanical Integrity Specialist Relationship Specialty Start Date End Date Aure Gordon MD [address] [place] [address] PCP - General Family Medicine 07/11/24 Mechanical Integrity Specialist Relationship Specialty Start Date End Date Aure Gordon MD [address] [place] [phone] PCP - General Family Medicine 07/11/24 FOR [...] BE BASED ON THE PRIMARY CLINICAL RECORDS. [employer] provides no warranty or guarantee of the accuracy or completeness of [phone] in [phone] [id number]
[2025-04-11 09:45] LABS: Cholesterol 192 mg/dL (<=200); Low Density Lipoprotein Calc. 109 mg/dL; Triglycerides 102 mg/dL; Very Low Density Lipoprotein 20 mg/dL (5-40); cholesterol:hdl ratio screen 2.97
[2025-04-12 06:38] LABS: PROGESTERONE 10.7 ng/mL (.); PROLACTIN 14.6 ng/mL (4.8-33.4)
== END | disposition home or self-care (01) ==
LOC: LAB 08:46
PROVIDERS: PCP Family Medicine; Referring Provider Nurse Practitioner Family; Visit Provider Nurse Practitioner Family
DX: Z31.69 Encounter for other general counseling and advice on procreation (principal); N93.0 Postcoital and contact bleeding
CPT/HCPCS: 36415; 80061; 84144; 84146